=== PATIENT | female | born 1935 | race Caucasian/White ===

== ENCOUNTER 2019-03-27 20:11 | Inpatient (IN) | payer MEDICARE, OTHER ==
[2019-03-27 21:23] LABS: Basophils # (A) 0.1 k/uL (0-0.2); Basophils % (A) 1 %; Eosinophils # (A) 0.1 k/uL (0-0.7); Eosinophils % (A) 2 %; HCT 37.1 % (34.0-46.0); HGB 12.5 gm/dL (11.4-16.0); Lymphocytes # (A) 1.3 k/uL (1.0-4.8); Lymphocytes % (A) 23 %; MCH 30.2 pg (25.0-35.0); MCHC 33.7 g/dL (31.0-37.0); MCV 89.5 fL (80.0-100.0); Mean Platelet Volume 8.5; Monocytes # (A) 0.5 k/uL (0-1.0); Monocytes % (A) 9 %; Neutrophils # (A) 3.8 k/uL (1.3-7.7); Neutrophils % (A) 63 %; Platelet Count 302 k/uL (150-450); RBC 4.14 m/uL (3.80-5.40); RDW 14.4 % (11.5-15.5); WBC 5.9 k/uL (3.8-10.6)
[2019-03-27 21:30] LABS: ALT 28 U/L (9-52); AST 29 U/L (14-36); African American GFR (CKD) >90 (>60 ml/min/1.73 sqM); Albumin 4.3 g/dL (3.5-5.0); Alkaline Phosphatase 117 U/L (38-126); Anion Gap 10 mmol/L; Blood Urea Nitrogen 15 mg/dL (7-17); Calcium 9.8 mg/dL (8.4-10.2); Carbon Dioxide 24 mmol/L (22-30); Chloride 106 mmol/L (98-107); Creatine Kinase 62 U/L (30-135); Glucose 102 mg/dL (74-99); Magnesium 2.2 mg/dL (1.6-2.3); Potassium 4.2 mmol/L (3.5-5.1); Sodium 140 mmol/L (137-145); Total Bilirubin 0.8 mg/dL (0.2-1.3); Total Protein 7.3 g/dL (6.3-8.2)
[2019-03-27 21:34] LABS: Partial Thromboplastin Time 25.6 sec (22.0-30.0); Prothrombin Time 10.5 sec (9.0-12.0)
--- NOTE | 2019-03-27 21:50 | XR ---
EXAMINATION TYPE: XR chest 2V DATE OF EXAM: 03/27/2019 COMPARISON: Chest radiograph 01/09/2010 HISTORY: Dysrhythmia TECHNIQUE: Frontal and lateral views of the chest are obtained. FINDINGS: Cardiomediastinal silhouette is within normal limits. Atherosclerotic aortic calcification s. No focal airspace consolidation. No pleural effusion or pneumothorax. Remote right-sided rib fract ures noted. Exaggerated thoracic kyphosis with likely chronic physiologic wedging of multiple thoraci c vertebral bodies. Diffuse osteopenia. IMPRESSION: No acute cardiopulmonary process.
--- NOTE | 2019-03-27 22:37 | ED ---
Arrhythmia/Palpitations HPI - General Chief Complaint: Arrhythmia/Palpitations Stated Complaint: Tachycardia/AFIB Time Seen by Provider: 03/27/19 20:11 Source: patient, EMS, RN notes reviewed Mode of arrival: EMS - History of Present Illness Initial Comments: This 83-year-old female who was transferred here from [facility] where she presented with complaints of increased heart rate elevated blood pressure and later she developed chest pain while she was in the emergency department. Initial troponin was negative she had a heart rate is showed sinus rhythm of 124. She was transferred here for further evaluation. She has seen Dr. Chicas in the past. Currently symptom-free she has a chest pain palpitations fevers chills nausea vomiting sweats or other symptoms. He also have a CAT scan done as she had elevated d-dimer is negative. MD Complaint: rapid heart beat - Related Data Home Medications Medication Instructions Recorded Confirmed Allopurinol [Zyloprim] 300 mg PO DAILY 03/27/19 03/27/19 Atorvastatin Calcium [Lipitor] 20 mg PO HS 03/27/19 03/27/19 Ergocalciferol (Vitamin D2) 50,000 unit PO MOFR 03/27/19 03/27/19 [Vitamin D2] Fluticasone Nasal [place] [Flonase 1 spray EA NOSTRIL DAILY 03/27/19 03/27/19 Nasal [place]] Isosorbide Mononitrate ER [Imdur] 30 mg PO DAILY 03/27/19 03/27/19 Omeprazole [PriLOSEC] 20 mg PO DAILY 03/27/19 03/27/19 amLODIPine [Norvasc] 10 mg PO DAILY 03/27/19 03/27/19 Allergies Allergy/AdvReac Type Severity Reaction Status Date / Time No Known Allergies Allergy Verified 03/27/19 21:10 Review of Systems ROS Statement: Those systems with pertinent positive or pertinent negative responses have been documented in the HPI. ROS Other: All systems not noted in ROS Statement are negative. Past Medical History Past Medical History: Atrial Fibrillation History of Any Multi-Drug Resistant Organisms: None Reported Past Surgical History: Cholecystectomy, Heart Catheterization With Stent Past Psychological History: No Psychological Hx Reported Smoking Status: Never smoker Past Alcohol Use History: Occasional Past Drug Use History: None Reported General Exam - General Exam Comments Initial Comments: This is a well-developed well-nourished awake alert oriented x 3 female General appearance: alert, in no apparent distress Head exam: Present: atraumatic, normocephalic, normal inspection Eye exam: Present: normal appearance, PERRL, EOMI. Absent: scleral icterus, conjunctival injection, periorbital swelling ENT exam: Present: normal exam, mucous membranes moist Neck exam: Present: normal inspection. Absent: tenderness, meningismus, lymphadenopathy Respiratory exam: Present: normal lung sounds bilaterally. Absent: respiratory distress, wheezes, rales, rhonchi, stridor Cardiovascular Exam: Present: regular rate, normal rhythm, normal heart sounds. Absent: systolic murmur, diastolic murmur, rubs, gallop, clicks GI/Abdominal exam: Present: soft, normal bowel sounds. Absent: distended, tenderness, guarding, rebound, rigid Extremities exam: Present: normal inspection, full ROM, normal capillary refill. Absent: tenderness, pedal edema, joint swelling, calf tenderness Back exam: Present: normal inspection Neurological exam: Present: alert, oriented X3, CN II-XII intact Psychiatric exam: Present: normal affect, normal mood Skin exam: Present: warm, dry, intact, normal color. Absent: rash Course Vital Signs 03/27/19 03/27/19 03/27/19 20:20 20:29 21:55 Temperature 98 F Pulse Rate 72 61 Pulse Rate [ 78 Manager Law ] Respiratory 18 18 Rate Blood Pressure 161/71 134/76 O2 Sat by Pulse 96 96 Oximetry EKG Findings - EKG Results: EKG: interpreted by ERMD (Irregular rhythm passively atrial fibrillation rate of 87 QRS 90 QT since QTC 374/450) Medical Decision Making - Medical Decision Making Did review the materials from the sending facility patient be admitted I did discuss the case with Dr. Chicas who requested the patient be admitted to Dr. Wilks. I did discuss case Dr. Wilks's service. - Lab Data Result diagrams: 03/27/19 21:03 03/27/19 21:03 Lab Results 03/27/19 03/27/19 03/27/19 Range/Units 21:03 21:03 21:03 WBC 5.9 (3.8-10.6) k/uL RBC 4.14 (3.80-5.40) m/uL Hgb 12.5 (11.4-16.0) gm/dL Hct 37.1 (34.0-46.0) % MCV 89.5 (80.0-100.0) fL MCH 30.2 (25.0-35.0) pg MCHC 33.7 (31.0-37.0) g/dL RDW 14.4 (11.5-15.5) % Plt Count 302 (150-450) k/uL Neutrophils % 63 % Lymphocytes % 23 % Monocytes % 9 % Eosinophils % 2 % Basophils % 1 % Neutrophils # 3.8 (1.3-7.7) k/uL Lymphocytes # 1.3 (1.0-4.8) k/uL Monocytes # 0.5 (0-1.0) k/uL Eosinophils # 0.1 (0-0.7) k/uL Basophils # 0.1 (0-0.2) k/uL PT 10.5 (9.0-12.0) sec INR 1.0 (<1.2) APTT 25.6 (22.0-30.0) sec Sodium 140 (137-145) mmol/L Potassium 4.2 (3.5-5.1) mmol/L Chloride 106 (98-107) mmol/L Carbon Dioxide 24 (22-30) mmol/L Anion Gap 10 mmol/L BUN 15 (7-17) mg/dL Creatinine 0.68 (0.52-1.04) mg/dL Est GFR (CKD-EPI)AfAm >90 (>60 ml/min/1.73 sqM) Est GFR (CKD-EPI)NonAf 81 (>60 ml/min/1.73 sqM) Glucose 102 H (74-99) mg/dL Calcium 9.8 (8.4-10.2) mg/dL Magnesium 2.2 (1.6-2.3) mg/dL Total Bilirubin 0.8 (0.2-1.3) mg/dL AST 29 (14-36) U/L ALT 28 (9-52) U/L Alkaline Phosphatase 117 (38-126) U/L Creatine Kinase 62 (30-135) U/L Troponin I (0.000-0.034) ng/mL Total Protein 7.3 (6.3-8.2) g/dL Albumin 4.3 (3.5-5.0) g/dL 08/31/19 Range/Units 21:03 WBC (3.8-10.6) k/uL RBC (3.80-5.40) m/uL Hgb (11.4-16.0) gm/dL Hct (34.0-46.0) % MCV (80.0-100.0) fL MCH (25.0-35.0) pg MCHC (31.0-37.0) g/dL RDW (11.5-15.5) % Plt Count (150-450) k/uL Neutrophils % % Lymphocytes % % Monocytes % % Eosinophils % % Basophils % % Neutrophils # (1.3-7.7) k/uL Lymphocytes # (1.0-4.8) k/uL Monocytes # (0-1.0) k/uL Eosinophils # (0-0.7) k/uL Basophils # (0-0.2) k/uL PT (9.0-12.0) sec INR (<1.2) APTT (22.0-30.0) sec Sodium (137-145) mmol/L Potassium (3.5-5.1) mmol/L Chloride (98-107) mmol/L Carbon Dioxide (22-30) mmol/L Anion Gap mmol/L BUN (7-17) mg/dL Creatinine (0.52-1.04) mg/dL Est GFR (CKD-EPI)AfAm (>60 ml/min/1.73 sqM) Est GFR (CKD-EPI)NonAf (>60 ml/min/1.73 sqM) Glucose (74-99) mg/dL Calcium (8.4-10.2) mg/dL Magnesium (1.6-2.3) mg/dL Total Bilirubin (0.2-1.3) mg/dL AST (14-36) U/L ALT (9-52) U/L Alkaline Phosphatase (38-126) U/L Creatine Kinase (30-135) U/L Troponin I <0.012 (0.000-0.034) ng/mL Total Protein (6.3-8.2) g/dL Albumin (3.5-5.0) g/dL Disposition Clinical Impression: Chest pain, Atrial fibrillation Disposition: ADMITTED IP TO THIS HOSP Condition: Fair Referrals: Manasa Calixto NPC [Primary Care Provider] - 1-2 days
[2019-03-27] MEDS ORDERED: NALOXONE 0.4 MG/ML 1 ML VIAL IV PRN (22:43)
[2019-03-27] MEDS ORDERED: HEPARIN SODIUM,PORCINE 5,000 UNIT/ML 1 ML VIAL IV ONE (22:47)
[2019-03-27] MEDS ORDERED: HEPARIN SODIUM,PORCINE 5,000 UNIT/ML 1 ML VIAL IV PRN (22:47)
[2019-03-27] MEDS ORDERED: HEPARIN SOD,PORK IN 0.45% NACL 25,000 UNIT in 0.45% NACL 1 250ML.BAG IV SCH (23:00)
[2019-03-27] MEDS: SODIUM CHLORIDE 0.9% 1,000 ML IV SCH (23:11)
[2019-03-28 00:08] LABS: Basophils # (A) 0.1 k/uL (0-0.2); Basophils % (A) 1 %; Eosinophils # (A) 0.1 k/uL (0-0.7); Eosinophils % (A) 2 %; HCT 36.9 % (34.0-46.0); HGB 12.4 gm/dL (11.4-16.0); Lymphocytes # (A) 1.4 k/uL (1.0-4.8); Lymphocytes % (A) 22 %; MCHC 33.7 g/dL (31.0-37.0); MCV 91.8 fL (80.0-100.0); Mean Platelet Volume 8.8; Monocytes # (A) 0.5 k/uL (0-1.0); Monocytes % (A) 8 %; Neutrophils % (A) 65 %; Platelet Count 289 k/uL (150-450); RBC 4.02 m/uL (3.80-5.40); RDW 15.2 % (11.5-15.5); WBC 6.2 k/uL (3.8-10.6)
[2019-03-28 00:18] LABS: INR 1.1 (<1.2); Partial Thromboplastin Time 68.7 sec (22.0-30.0); Prothrombin Time 11.2 sec (9.0-12.0)
[2019-03-28 06:33] LABS: Basophils # (A) 0.1 k/uL (0-0.2); Basophils % (A) 1 %; Eosinophils # (A) 0.2 k/uL (0-0.7); Eosinophils % (A) 3 %; HCT 38.4 % (34.0-46.0); HGB 12.9 gm/dL (11.4-16.0); Lymphocytes # (A) 1.5 k/uL (1.0-4.8); Lymphocytes % (A) 26 %; MCH 30.5 pg (25.0-35.0); MCHC 33.5 g/dL (31.0-37.0); MCV 91.1 fL (80.0-100.0); Mean Platelet Volume 9.3; Monocytes # (A) 0.5 k/uL (0-1.0); Monocytes % (A) 10 %; Neutrophils # (A) 3.3 k/uL (1.3-7.7); Neutrophils % (A) 58 %; Platelet Count 278 k/uL (150-450); RBC 4.22 m/uL (3.80-5.40); RDW 14.9 % (11.5-15.5); WBC 5.7 k/uL (3.8-10.6)
[2019-03-28] MEDS: PANTOPRAZOLE 40 MG TABLET PO SCH (06:47)
[2019-03-28] MEDS: ISOSORBIDE MONONITRATE ER 30 MG TAB.ER.24H PO SCH (10:23)
[2019-03-28] MEDS: FLUTICASONE 50MCG/SPRAY NASAL 16GM EA NOSTRIL SCH (10:23)
[2019-03-28] MEDS: RIVAROXABAN 20 MG TAB PO SCH (10:23)
[2019-03-28] MEDS: ALLOPURINOL 300 MG TAB PO SCH (10:23)
[2019-03-28] MEDS: amLODIPine 10 MG TAB PO SCH (10:23)
[2019-03-28] MEDS: PROPAFENONE 150 MG TAB PO SCH ×3 (10:24→21:33)
--- NOTE | 2019-03-28 11:47 | CONS ---
CONSULTATION CHIEF COMPLAINT: Palpitations. This is an 83-year-old lady with history of coronary artery disease status post angioplasty, hypertension, dyslipidemia, who presented to hospital with elevated heart rates. She states that she has noticed heart rates as high as 140-160 and along with that she had some chest discomfort. She describes it as a tightness, vague, mild intensity, not associated with diaphoresis and unrelated to exertion. This has resolved on its own spontaneously. She was concerned, went to the emergency room in [place]. Subsequently had been transferred to our emergency room. She was found to be in new onset atrial fibrillation for which she is admitted and Cardiology had been consulted. At the time of my evaluation she is pain free, hemodynamically stable and in no apparent distress. EKG shows atrial fibrillation with controlled ventricular rate. Her blood pressures are poorly controlled. Troponin is negative. I talked to patient about her treatment options, including rate control with long-term anticoagulation versus rhythm suppression. She is going to think over this and make a decision tomorrow. I will obtain a 2D echo on her to evaluate her LV function. PAST MEDICAL HISTORY: Significant for coronary artery disease status post angioplasty, hypertension, dyslipidemia. MEDICATIONS: Medications at home include Lipitor 20 daily, Flonase, Imdur 30 daily, Prilosec 20 daily, Norvasc 10 daily. ALLERGIES: There are no known drug allergies. FAMILY HISTORY: Negative for premature coronary artery disease. SOCIAL HISTORY: Negative for smoking, EtOH abuse, or drug abuse. REVIEW OF SYSTEMS: HEENT is unremarkable. CARDIAC: Cardiac as described above. RESPIRATORY: As described above. GI: Negative. GENITOURINARY: Negative. ALLERGY: None. SKIN: Negative. MUSCULOSKELETAL: Negative. ENDOCRINE: Negative. DERM: Negative. CONSTITUTIONAL: Negative. ONCOLOGICAL: Negative. Rest of the system review is not relevant. EXAM: Heart rate is 60 beats per minute. Blood pressure is 160/70, respirations 18. Chest exam reveals good air entry bilaterally. Heart exam reveals first and second heart sounds, irregular rhythm. No murmur. Abdomen is soft. Exam of extremities did not reveal any edema. Peripheral pulses are felt. LAB: Show that the hemoglobin is 12.9, potassium is 4.2, creatinine is 0.68. Troponin is negative. ASSESSMENT: 1. Persistent atrial fibrillation. 2. Precordial chest pain, myocardial infarction ruled out. 3. Coronary artery disease, status post angioplasty. 4. Uncontrolled hypertension. PLAN: I will obtain a 2D echo. Start the patient on Xarelto 20 mg daily. Tomorrow morning, make a decision whether to let her go home or keep her here and do cardioversion. NILS / AMANDA: [id number] /
[2019-03-28] MEDS: LOSARTAN 25 MG TAB PO SCH (12:51)
--- NOTE | 2019-03-28 13:42 | ECHOF ---
Referral Reason:afib MEASUREMENTS -------- HEIGHT: 167.6 cm WEIGHT: 83.5 kg BP: 155/71 IVSd: 1.5 cm (0.6 - 1.1) LVIDd: 4.0 cm (3.9 - 5.3) LVPWd: 1.6 cm (0.6 - 1.1) IVSs: 1.6 cm LVIDs: 3.0 cm LVPWs: 1.9 cm LAESV Index (A-L): 48.27 ml/m Ao Diam: 2.6 cm (2.0 - 3.7) AV Cusp: 1.5 cm (1.5 - 2.6) LA Diam: 4.2 cm (2.7 - 3.8) MV EXCURSION: 12.148 mm (> 18.000) MV EF SLOPE: 71 mm/s (70 - 150) EPSS: 0.2 cm AR PHT: 474 ms RAP: 5.00 mmHg RVSP: 47.24 mmHg FINDINGS -------- Atrial fibrillation. This was a technically adequate study. The left ventricular size is normal. There is moderate concentric left ventricular hypertrophy. O verall left ventricular systolic function is low-normal with, an EF between 50 - 55 %. Left ventric ular fillimg pressure cannot be estimated due to Atrial fibrillation. The right ventricle is moderately enlarged. LA is severely dilated >40 ml/m2 RA appears enlarged. Interatrial and interventricular septum intact. The aortic valve is trileaflet and appears structurally normal. There is moderate aortic regurgitat ion. There is no evidence of aortic stenosis. Moderate mitral regurgitation is present. Moderate tricuspid regurgitation present. There is moderate pulmonary hypertension. The right jude tricular systolic pressure, as measured by Doppler, is 47.24mmHg. There is no pulmonic regurgitation present. The aortic root size is normal. The inferior vena cava is mildly dilated. There is a trivial pericardial effusion present. CONCLUSIONS -------- 1. Atrial fibrillation. 2. This was a technically adequate study. 3. The left ventricular size is normal. 4. There is moderate concentric left ventricular hypertrophy. 5. Overall left ventricular systolic function is low-normal with, an EF between 50 - 55 %. 6. Left ventricular fillimg pressure cannot be estimated due to Atrial fibrillation. 7. The right ventricle is moderately enlarged. 8. LA is severely dilated >40 ml/m2 9. RA appears enlarged. 10. Interatrial and interventricular septum intact. 11. The aortic valve is trileaflet and appears structurally normal. 12. There is moderate aortic regurgitation. 13. There is no evidence of aortic stenosis. 14. Moderate mitral regurgitation is present. 15. Moderate tricuspid regurgitation present. 16. There is moderate pulmonary hypertension. 17. The right ventricular systolic pressure, as measured by Doppler, is 47.24mmHg. 18. There is no pulmonic regurgitation present. 19. The aortic root size is normal. 20. The inferior vena cava is mildly dilated. 21. There is a trivial pericardial effusion present. HUMAN GEOGRAPHY FACULTY MEMBER: Lily Rowley RDCS
--- NOTE | 2019-03-28 15:05 | P.HPIM ---
History of Present Illness This is a pleasant 83 years old female with past medical history of atrial fibrillation, hyperlipidemia, hypertension, coronary artery disease status post cardiac cath and stent placement. Presents with palpitations and chest tigh tness. Patient has heart rate in the range of 140-160. She was transferred from [facility] to [facility] for further management and cardiology evaluation. At the time of rapid heart rate she felt some chest tightness that relieved with nitroglycerin. Currently as result with no more chest pain or dyspnea Patient vitals stable and heart rate currently is 63-74. Labs show an unrema rkable CBC and BMP. Echocardiogram showed ejection fraction 50-55% with moderate LVH. Moderate aortic regurgitation. Moderate tricuspid regurgitation. Moderate pulmonary hypertension. Battery Technician evaluated the patient and recommended rate control with anticoagulation versus rhythm suppression, patient will make decision tomorrow. Review of Systems CONSTITUTIONAL: No fever, no malaise, no fatigue. HEENT: No recent visual problems or hearing problems. Denied any sore throat. CARDIOVASCULAR: No orthopnea, PND, no palpitations, no syncope. PULMONARY: No shortness of breath, no cough, no hemoptysis. GASTROINTESTINAL: No diarrhea, no nausea, no vomiting, no abdominal pain. Normoactive bowel sounds. NEUROLOGICAL: No headaches, no weakness, no numbness. HEMATOLOGICAL: Denies any bleeding or petechiae. GENITOURINARY: Denies any burning micturition, frequency, or urgency. MUSCULOSKELETAL/RHEUMATOLOGICAL: Denies any joint pain, swelling, or any muscle pain. ENDOCRINE: Denies any polyuria or polydipsia. Past Medical History Past Medical History: Atrial Fibrillation, Hyperlipidemia, Hypertension History of Any Multi-Drug Resistant Organisms: None Reported Past Surgical History: Appendectomy, Cholecystectomy, Heart Catheterization With Stent, Hysterectomy Date of Last Stent Placement:: 5 years ago Past Psychological History: No Psychological Hx Reported Smoking Status: Never smoker Past Alcohol Use History: Occasional Past Drug Use History: None Reported Medications and Allergies Home Medications Medication Instructions Recorded Confirmed Type Allopurinol [Zyloprim] 300 mg PO DAILY 03/27/19 03/27/19 History Atorvastatin Calcium [Lipitor] 20 mg PO HS 03/27/19 03/27/19 History Ergocalciferol (Vitamin D2) 50,000 unit PO MOFR 03/27/19 03/27/19 History [Vitamin D2] Fluticasone Nasal [place] [Flonase 1 spray EA NOSTRIL DAILY 03/27/19 03/27/19 History Nasal [place]] Isosorbide Mononitrate ER [Imdur] 30 mg PO DAILY 03/27/19 03/27/19 History Omeprazole [PriLOSEC] 20 mg PO DAILY 03/27/19 03/27/19 History amLODIPine [Norvasc] 10 mg PO DAILY 03/27/19 03/27/19 History Allergies Allergy/AdvReac Type Severity Reaction Status Date / Time No Known Allergies Allergy Verified 03/27/19 21:10 Physical Exam Vitals: Vital Signs Temp Pulse Pulse Pulse Resp BP BP 03/28/19 11:50 74 16 134/87 03/28/19 08:35 97.9 F 63 16 155/71 03/28/19 04:00 97.7 F 62 16 168/73 03/28/19 01:00 97.8 F 60 16 139/77 03/28/19 00:45 162/68 03/27/19 21:55 61 18 134/76 03/27/19 20:29 78 03/27/19 20:20 98 F 72 18 161/71 Pulse Ox 03/28/19 11:50 98 03/28/19 08:35 96 03/28/19 04:00 96 03/28/19 01:00 98 03/28/19 00:45 03/27/19 21:55 96 03/27/19 20:29 03/27/19 20:20 96 Intake and Output 03/27/19 03/28/19 03/28/19 22:59 06:59 14:59 Other: Voiding Method Toilet # Voids 1 Weight 81.647 kg 83.7 kg GENERAL: The patient is alert and oriented x3, not in any acute distress. Well developed, well nourished. HEENT: Pupils are round and equally reacting to light. EOMI. No scleral icterus. No conjunctival pallor. Normocephalic, atraumatic. No pharyngeal erythema. No thyromegaly. CARDIOVASCULAR: S1 and S2 present. No murmurs, rubs, or gallops. PULMONARY: Chest is clear to auscultation, no wheezing or crackles. ABDOMEN: Soft, nontender, nondistended, normoactive bowel sounds. No palpable organomegaly. MUSCULOSKELETAL: No joint swelling or deformity. EXTREMITIES: No cyanosis, clubbing, or pedal edema. NEUROLOGICAL: Gross neurological examination did not reveal any focal deficits. SKIN: No rashes. Results CBC & Chem 7: 03/28/19 05:56 03/27/19 21:03 Labs: Abnormal Lab Results - Last 24 Hours (Table) 03/27/19 03/27/19 03/28/19 Range/Units 21:03 23:29 05:56 APTT 68.7 H 57.8 H (22.0-30.0) sec Glucose 102 H (74-99) mg/dL Thrombosis Risk Factor Assmnt - Choose All That Apply Each Factor Represents 1 point: Medical pt on bed rest, Obesity (BMI >25) Each Risk Factor Represents 3 Points: Age 75 years or older Thrombosis Risk Factor Assessment Total Risk Factor Score: 5 Thrombosis Risk Factor Assessment Level: High Risk Assessment and Plan Assessment: Persistent atrial fibrillation Moderate aortic regurgitation and tricuspid regurgitation Moderate pulmonary hypertension Hypertension Hyperlipidemia History of coronary artery disease status post stent Plan: This is a pleasant 83 years old female who presents with palpitations and A. fib with RVR. Cardiogenic evaluated the patient and recommended rate control versus rhythm suppression. Echocardiogram. Continue on Xarelto Labs and medication were reviewed.. Continue same treatment. Continue with symptomatic treatment. Resume home medication. Monitor lytes and vitals. DVT and GI prophylaxis. Further recommendations of the clinical course of the patient DVT prophylaxis: Xarelto GI Prophylaxis: Protonix Prognosis is guarded
[2019-03-28] MEDS: SODIUM CHLORIDE 0.9% 1,000 ML IV SCH (18:13)
[2019-03-28] MEDS: ATORVASTATIN 20 MG TAB PO SCH (21:33)
[2019-03-29] MEDS: SODIUM CHLORIDE 0.9% 1,000 ML IV SCH ×3 (04:36→15:28)
[2019-03-29] MEDS: PANTOPRAZOLE 40 MG TABLET PO SCH (06:40)
[2019-03-29] MEDS ORDERED: ERGOCALCIFEROL 50,000 UNIT CAP PO SCH (09:00)
[2019-03-29] MEDS: LOSARTAN 25 MG TAB PO SCH (10:01)
[2019-03-29] MEDS: amLODIPine 10 MG TAB PO SCH (10:01)
[2019-03-29] MEDS: ISOSORBIDE MONONITRATE ER 30 MG TAB.ER.24H PO SCH (10:01)
[2019-03-29] MEDS: RIVAROXABAN 20 MG TAB PO SCH (10:02)
[2019-03-29] MEDS: PROPAFENONE 150 MG TAB PO SCH ×3 (10:02→21:20)
[2019-03-29] MEDS: ALLOPURINOL 300 MG TAB PO SCH (10:02)
[2019-03-29] MEDS: FLUTICASONE 50MCG/SPRAY NASAL 16GM EA NOSTRIL SCH (10:03)
--- NOTE | 2019-03-29 11:17 | P.PN ---
Subjective This is a pleasant 83 years old female with past medical history of atrial fibrillation, hyperlipidemia, hypertension, coronary artery disease status post cardiac cath and stent placement. Presents with palpitations and chest tightness. Patient has heart rate in the range of 140-160. She was transferred from [facility] to [facility] for further management and cardiology evaluation. At the time of rapid heart rate she felt some chest tightness that relieved with nitroglycerin. Currently as result with no more chest pain or dy spnea Patient vitals stable and heart rate currently is 63-74. Labs show an unremarkable CBC and BMP. Echocardiogram showed ejection fraction 50-55% with moderate LVH. Moderate aortic regurgitation. Moderate tricuspid regurgitation. Moderate pulmonary hypertension. Labor Relations Director evaluated the patient and recommended rate control with anticoagulation versus rhythm suppression, patient will make decision tomorrow. 03/29/2019 Patient has no more palpitation. No chest pain or dyspnea. She is fully awake with no new symptoms. She is hemodynamically stable and heart rate is in high 90s. Occult blood in his stool is negative. Cardiology team are following the patient closely Objective - Vital Signs Vital signs: Vital Signs Temp 98 F 03/29/19 11:08 Pulse 98 03/29/19 11:08 Resp 16 03/29/19 11:08 BP 134/77 03/29/19 11:08 Pulse Ox 97 03/29/19 11:08 Intake & Output 03/28/19 03/29/19 03/29/19 18:59 06:59 18:59 Intake Total 240 840 Output Total 300 200 Balance -60 -200 840 Weight 81.3 kg Intake: Oral 240 840 Output: Urine 300 200 Other: Voiding Method Toilet Toilet Toilet # Voids 2 - Exam GENERAL: The patient is alert and oriented x3, not in any acute distress. Well developed, well nourished. HEENT: Pupils are round and equally reacting to light. EOMI. No scleral icterus. No conjunctival pallor. Normocephalic, atraumatic. No pharyngeal erythema. No thyromegaly. CARDIOVASCULAR: S1 and S2 present. No murmurs, rubs, or gallops. PULMONARY: Chest is clear to auscultation, no wheezing or crackles. ABDOMEN: Soft, nontender, nondistended, normoactive bowel sounds. No palpable organomegaly. MUSCULOSKELETAL: No joint swelling or deformity. EXTREMITIES: No cyanosis, clubbing, or pedal edema. NEUROLOGICAL: Gross neurological examination did not reveal any focal deficits. SKIN: No rashes. Get up and go test is within normal - Labs CBC & Chem 7: 03/28/19 05:56 03/27/19 21:03 Assessment and Plan Assessment: Persistent atrial fibrillation Moderate aortic regurgitation and tricuspid regurgitation Moderate pulmonary hypertension Hypertension Hyperlipidemia History of coronary artery disease status post stent Plan: This is a pleasant 83 years old female who presents with palpitations and A. fib with RVR. Cardiogenic evaluated the patient and recommended rate control versus rhythm suppression. Echocardiogram. Continue on Xarelto Labs and medication were reviewed.. Continue same treatment. Continue with symptomatic treatment. Resume home medication. Monitor lytes and vitals. DVT and GI prophylaxis. Further recommendations of the clinical course of the patient DVT prophylaxis: Xarelto GI Prophylaxis: Protonix Prognosis is guarded
--- NOTE | 2019-03-29 18:11 | PN ---
PROGRESS NOTE Britany is an 83-year-old lady who was admitted to hospital with new onset atrial fibrillation. She remains in atrial fibrillation. Heart rate is better controlled. I started her on Rythmol 150 q.8 but she still remains in atrial fibrillation. She is adequately anticoagulated with Xarelto. I talked to her about undergoing transesophageal echo with cardioversion. She is agreeable now and will set it up tomorrow. An echocardiogram on this admission revealed normal LV function with moderate mitral regurgitation. EXAM: Comfortable at rest. Heart rate is 98 beats per minute. Blood pressure 134/77, respiratory rate is 18. Chest exam reveals good air entry bilaterally. Heart exam reveals first and second heart sounds, irregular rhythm. Abdomen is soft. Exam of extremities did not reveal any edema. Peripheral pulses are felt. LABS: Labs show that the hemoglobin is 12.9, potassium is 4.2, creatinine is 0.6. ASSESSMENT: Persistent atrial fibrillation with controlled ventricular rate. PLAN: Patient will undergo OSCAR cardioversion tomorrow. MMODL / IJN: [id number] /
[2019-03-29] MEDS: METOPROLOL TARTRATE 25 MG TAB PO SCH (19:16)
[2019-03-29] MEDS: ATORVASTATIN 20 MG TAB PO SCH (21:20)
[2019-03-30] MEDS: SODIUM CHLORIDE 0.9% 1,000 ML IV SCH ×2 (02:09→19:40)
[2019-03-30 06:15] LABS: Basophils # (A) 0.1 k/uL (0-0.2); Basophils % (A) 2 %; Eosinophils # (A) 0.2 k/uL (0-0.7); Eosinophils % (A) 3 %; HGB 12.4 gm/dL (11.4-16.0); Lymphocytes # (A) 1.3 k/uL (1.0-4.8); Lymphocytes % (A) 24 %; MCHC 32.6 g/dL (31.0-37.0); MCV 91.9 fL (80.0-100.0); Mean Platelet Volume 8.5; Monocytes # (A) 0.5 k/uL (0-1.0); Monocytes % (A) 9 %; Neutrophils # (A) 3.4 k/uL (1.3-7.7); Neutrophils % (A) 61 %; Platelet Count 285 k/uL (150-450); RBC 4.13 m/uL (3.80-5.40); RDW 14.8 % (11.5-15.5); WBC 5.7 k/uL (3.8-10.6)
[2019-03-30 06:29] LABS: Calcium 9.6 mg/dL (8.4-10.2); Potassium 4.7 mmol/L (3.5-5.1)
[2019-03-30] MEDS: PANTOPRAZOLE 40 MG TABLET PO SCH (06:35)
[2019-03-30] MEDS ORDERED: PROPOFOL 10 MG/ML 20 ML VIAL IV ONE (08:34)
[2019-03-30] MEDS ORDERED: LIDOCAINE 1% INJ 10MG/ML (20 ML MDV) ONE (08:34)
[2019-03-30] MEDS ORDERED: SODIUM CHLORIDE 0.9% 1,000 ML IV ONE (08:51)
[2019-03-30] MEDS: BENZOCAINE SPRAY 1 CAN MUCOUS MEM ONE ×2 (09:07→09:08)
[2019-03-30] MEDS: FLUTICASONE 50MCG/SPRAY NASAL 16GM EA NOSTRIL SCH (10:16)
[2019-03-30] MEDS: METOPROLOL TARTRATE 25 MG TAB PO SCH (10:25)
[2019-03-30] MEDS: ISOSORBIDE MONONITRATE ER 30 MG TAB.ER.24H PO SCH (10:25)
[2019-03-30] MEDS: ALLOPURINOL 300 MG TAB PO SCH (10:25)
[2019-03-30] MEDS: RIVAROXABAN 20 MG TAB PO SCH (10:25)
--- NOTE | 2019-03-30 10:27 | ECHOT ---
TRANSESOPHAGEAL ECHOCARDIOGRAM INDICATION: Persistent atrial fibrillation. PROCEDURE NOTE: After obtaining informed consent, transesophageal echocardiogram was performed in left lateral position using an Omni plane probe. Local and IV sedation were obtained by the communications intern. Patient tolerated the procedure well without any obvious immediate complications. FINDINGS: 1. There is abundance of spontaneous echo contrast noted with linear echodense structure within the left atrial appendage consistent with left atrial appendage thrombus. 2. Left atrium appears enlarged. 3. Right atrium and right ventricle seen within normal limits. 4. Interatrial septum - There is no evidence of [id number] shunt by color-flow Doppler or [id number] shunt by agitated saline contrast study. 5. Mitral valve shows mild mitral regurgitation. 6. Aortic valve shows mild aortic regurgitation. 7. Tricuspid valve shows mild tricuspid regurgitation. 8. Left ventricle has normal size and systolic function. CONCLUSIONS: 1. Normal left ventricular systolic function. 2. Left atrial appendage thrombus. PLAN: Will cancel the cardioversion. Stop the Rythmol. Send the patient home on Xarelto and look at the left atrial appendage again in 6-8 weeks' time. MMODL / IJN: [id number] /
[2019-03-30] MEDS: LOSARTAN 25 MG TAB PO SCH (12:40)
[2019-03-30] MEDS: ATORVASTATIN 20 MG TAB PO SCH (20:40)
[2019-03-30] MEDS ORDERED: amLODIPine 10 MG TAB PO SCH (21:00)
--- NOTE | 2019-03-30 21:53 | P.PN ---
Subjective This is a pleasant 83 years old female with past medical history of atrial fibrillation, hyperlipidemia, hypertension, coronary artery disease status post cardiac cath and stent placement. Presents with palpitations and chest tightness. Patient has heart rate in the range of 140-160. She was transferred from [facility] to [facility] for further management and cardiology evaluation. At the time of rapid heart rate she felt some chest tightness that relieved with nitroglycerin. Currently as result with no more chest pain or dy spnea Patient vitals stable and heart rate currently is 63-74. Labs show an unremarkable CBC and BMP. Echocardiogram showed ejection fraction 50-55% with moderate LVH. Moderate aortic regurgitation. Moderate tricuspid regurgitation. Moderate pulmonary hypertension. Autographer evaluated the patient and recommended rate control with anticoagulation versus rhythm suppression, patient will make decision tomorrow. 03/29/2019 Patient has no more palpitation. No chest pain or dyspnea. She is fully awake with no new symptoms. She is hemodynamically stable and heart rate is in high 90s. Occult blood in his stool is negative. Cardiology team are following the patient closely 03/30/2019 pt is with no chest pain , today pt is found to have a blood clot in the left heart appendage, no cardioversion for her a fib has been cancelled and recommended to repeat echo in about 6 weeks for follow up . discussed case with cardiology team . we are going to monitor pt for another 24 hours Objective - Vital Signs Vital signs: Vital Signs Temp 97.8 F 03/30/19 15:56 Pulse 53 L 03/30/19 16:00 Resp 16 03/30/19 16:15 BP 118/59 03/30/19 16:00 Pulse Ox 98 03/30/19 15:56 Intake & Output 03/29/19 03/30/19 03/30/19 18:59 06:59 18:59 Intake Total 1800 1820 Output Total 250 Balance 1800 -250 1820 Weight 82.1 kg Intake: Oral 1800 1820 Output: Urine 250 Other: Voiding Method Toilet Toilet Toilet # Voids 4 - Exam GENERAL: The patient is alert and oriented x3, not in any acute distress. Well developed, well nourished. HEENT: Pupils are round and equally reacting to light. EOMI. No scleral icterus. No conjunctival pallor. Normocephalic, atraumatic. No pharyngeal erythema. No thyromegaly. CARDIOVASCULAR: S1 and S2 present. No murmurs, rubs, or gallops. PULMONARY: Chest is clear to auscultation, no wheezing or crackles. ABDOMEN: Soft, nontender, nondistended, normoactive bowel sounds. No palpable organomegaly. MUSCULOSKELETAL: No joint swelling or deformity. EXTREMITIES: No cyanosis, clubbing, or pedal edema. NEUROLOGICAL: Gross neurological examination did not reveal any focal deficits. SKIN: No rashes. Get up and go test is within normal - Labs CBC & Chem 7: 03/30/19 05:42 03/30/19 05:42 Labs: Abnormal Lab Results - Last 24 Hours (Table) 03/30/19 Range/Units 05:42 BUN 25 H (7-17) mg/dL Glucose 100 H (74-99) mg/dL Assessment and Plan Assessment: Persistent atrial fibrillation Moderate aortic regurgitation and tricuspid regurgitation Moderate pulmonary hypertension Hypertension Hyperlipidemia History of coronary artery disease status post stent Plan: This is a pleasant 83 years old female who presents with palpitations and A. fib with RVR. Continue on Xarelto. no cardioversion for her a fib and recommended to repeat echo in 4-6 weeks for left heart thrombosis . discussed case with cardiology team . Labs and medication were reviewed.. Continue same treatment. Continue with symptomatic treatment. Resume home medication. Monitor lytes and vitals. DVT and GI prophylaxis. Further recommendations of the clinical course of the patient DVT prophylaxis: Xarelto GI Prophylaxis: Protonix Prognosis is guarded possible dc in 24-48 hrs
[2019-03-30] MEDS: PROPAFENONE 150 MG TAB PO SCH (22:49)
[2019-03-30] MEDS: amLODIPine 10 MG TAB PO SCH (22:49)
[2019-03-31] MEDS: SODIUM CHLORIDE 0.9% 1,000 ML IV SCH (01:50)
[2019-03-31] MEDS: PANTOPRAZOLE 40 MG TABLET PO SCH (06:44)
[2019-03-31 07:55] VITALS: RESP 15
[2019-03-31] MEDS: METOPROLOL TARTRATE 25 MG TAB PO SCH (09:29)
[2019-03-31] MEDS: RIVAROXABAN 20 MG TAB PO SCH (09:29)
[2019-03-31] MEDS: ALLOPURINOL 300 MG TAB PO SCH (09:29)
[2019-03-31] MEDS: ISOSORBIDE MONONITRATE ER 30 MG TAB.ER.24H PO SCH (09:29)
[2019-03-31] MEDS: FLUTICASONE 50MCG/SPRAY NASAL 16GM EA NOSTRIL SCH (09:32)
[2019-03-31 11:11] VITALS: PULSE 67; TEMP 98.4
[2019-03-31 13:13] VITALS: BP 125/58
[2019-03-31] MEDS: LOSARTAN 25 MG TAB PO SCH (13:13)
--- NOTE | 2019-03-31 14:47 | P.PN ---
Subjective Progress Note Date: 03/31/19 This is an 83-year-old female with history of coronary artery disease and prior angioplasty, hypertension, hyperlipidemia, who presented to the hospital with elevated heart rates of 140-160 range. She was seen in consultation by Dr. Vann, found to be in atrial fibrillation. Patient was recommended to undergo a OSCAR with subsequent cardioversion, the OSCAR was performed yesterday which raised suspicion of a thrombus and patient was started on anticoagulation. She was seen and examined today, continues to be in atrial fibrillation, her heart rate is under good control. She feels well. Blood pressure 125/50 with a heart rate in the 70s, 95% on room air. Objective - Vital Signs Vital signs: Vital Signs Temp 98.4 F 03/31/19 11:05 Pulse 67 03/31/19 11:05 Resp 15 03/31/19 11:05 BP 125/58 03/31/19 13:13 Pulse Ox 95 03/31/19 11:05 Intake & Output 03/30/19 03/31/19 03/31/19 18:59 06:59 18:59 Intake Total 5567 986 6047 Balance 8272 476 2826 Weight 81.3 kg Intake: Oral 4644 007 6417 Other: Voiding Method Toilet Toilet Toilet # Voids 2 - Exam PHYSICAL EXAMINATION: GENERAL: 83-year-old female in no acute distress at the time of my examination HEENT: Head is atraumatic, normocephalic. Pupils equal, round. Sclera anicteric. Conjunctiva are clear. Mucous membranes of the mouth are moist. Neck is supple. There is no elevated jugular venous pressure.] bruit is heard. HEART EXAMINATION: Heart S1 and S2 irregularly irregular CHEST EXAMINATION: Lungs are clear to auscultation and precussion. No chest wall tenderness is noted on palpation or with deep breathing. ABDOMEN: Soft, nontender. Bowel sounds are heard. No organomegaly noted. EXTREMITIES: 2+ peripheral pulses with no evidence of peripheral edema and no calf tenderness noted. NEUROLOGIC patient is awake, alert and oriented 3 . - Labs CBC & Chem 7: 03/30/19 05:42 03/30/19 05:42 Assessment and Plan Plan: Assessment and plan #1 persistent atrial fibrillation, status post a OSCAR which revealed normal left ventricular systolic function with a left atrial appendage thrombus. Patient has been initiated on anticoagulation. Plan Patient may be able to be discharged home today, on anticoagulation. In 6-8 weeks, subsequent OSCAR will be performed. We'll make her a follow-up appointment to see Dr. Vann in the office post discharge. DNP note has been reviewed, I agree with a documented findings and plan of care. Patient was seen and examined.
[2019-04-01] MEDS ORDERED: APIXABAN 5 MG TAB PO SCH (09:00)
--- NOTE | 2019-04-06 09:27 | P.DS ---
Providers Date of admission: 03/27/19 22:47 Attending physician: Antonio Wilks Consults: 03/27/19 22:45 Consult Physician Routine Consulting Provider: Wang Chicas Consult Reason/Comments: Chest pain, A. fib Do you want consulting provider notified?: Already Contacted Primary care physician: Manasa [facility] Hospital Course: Diagnoses: Persistent atrial fibrillation Thrombosis in the left atrial appendage [id number] Moderate aortic regurgitation and tricuspid regurgitation Moderate pulmonary hypertension Hypertension Hyperlipidemia History of coronary artery disease status post stent Hospital course: This is a pleasant 83 years old female with past medical history of atrial fibrillation, hyperlipidemia, hypertension, coronary artery disease status post cardiac cath and stent placement. Presents with palpitations and chest tightness. Patient has heart rate in the range of 140-160. She was transferred from [facility] to [facility] for further management and cardiology evaluation. Patient has been evaluated by electrical power engineer on her medication were adjusted. Current heart rate has been controlled and currently is running 60- 75. Patient has metoprolol 25 mg daily added, also she is on Norvasc and losartan. Patient also on 0-20 mg daily. Ago shows ejection fraction 50-55% and LVH. Patient was planned to has cardioversion procedure however the procedure was canceled because patient was found to have thrombosis and her left atrial appendage, with the plan to check for the left atrial appendage again in 6-8 weeks time. Patient informed about this recommendation and she agrees. Patient remains asymptomatic with no chest pain, no dyspnea, no change in urine or bowel habits, no abdominal pain, no nausea vomiting, no fever, patient was cleared by cardiology team for discharge. Patient agrees and she is eager to go home. Problems and management plan were discussed with the patient and he verbalized understanding and acceptance Patient was found stable and can be discharged home however he needs follow-up as an outpatient. Patient was instructed to follow up with her PCP in one week. Also patient agrees with cardiology appointment and timing and said she will follow-up. i discussed the case with the BARBARA/Trice on the case . pt will be discharged on eliquis for one month with free coupon is provided for her for one month. and she will follow up with her pcp and electrical power engineer to see if she will continue with eliquis or xarelto based on clinical indication and copay. pt already has follow up appointments that she is aware of and agreeable with Gen: patient is a AAOx3, no distress CVS: S1-S2, RRR, no murmur Lungs: B/L CTA, no wheezing Abdomen: soft, no distention, no tenderness, positive bowel sounds Extremity: no leg edema or induration Time spent more than 35 minutes Patient Condition at Discharge: Stable Plan - Discharge Summary Discharge Rx Participant: No New Discharge Prescriptions: New Losartan [Cozaar] 25 mg PO DAILY #30 tab Apixaban [Eliquis] 5 mg PO BID #60 tab Metoprolol Tartrate [Lopressor] 25 mg PO DAILY #30 tab Continue amLODIPine [Norvasc] 10 mg PO DAILY Omeprazole [PriLOSEC] 20 mg PO DAILY Isosorbide Mononitrate ER [Imdur] 30 mg PO DAILY Fluticasone Nasal Conger [Flonase Nasal Conger] 1 spray EA NOSTRIL DAILY Ergocalciferol (Vitamin D2) [Vitamin D2] 50,000 unit PO MOFR Atorvastatin Calcium [Lipitor] 20 mg PO HS Allopurinol [Zyloprim] 300 mg PO DAILY Discharge Medication List Allopurinol [Zyloprim] 300 mg PO DAILY 03/27/19 [History] Atorvastatin Calcium [Lipitor] 20 mg PO HS 03/27/19 [History] Ergocalciferol (Vitamin D2) [Vitamin D2] 50,000 unit PO MOFR 03/27/19 [History] Fluticasone Nasal Conger [Flonase Nasal Conger] 1 spray EA NOSTRIL DAILY 03/27/19 [History] Isosorbide Mononitrate ER [Imdur] 30 mg PO DAILY 03/27/19 [History] Omeprazole [PriLOSEC] 20 mg PO DAILY 03/27/19 [History] amLODIPine [Norvasc] 10 mg PO DAILY 03/27/19 [History] Apixaban [Eliquis] 5 mg PO BID #60 tab 03/31/19 [Rx] Losartan [Cozaar] 25 mg PO DAILY #30 tab 03/31/19 [Rx] Metoprolol Tartrate [Lopressor] 25 mg PO DAILY #30 tab 03/31/19 [Rx] Follow up Appointment(s)/Referral(s): Wang Chicas MD [STAFF PHYSICIAN] - 04/09/19 3:30 pm (In [place] office.) Manasa Calixto NPC [Primary Care Provider] - 04/01/19 9:30 am Patient Instructions/Handouts: A-fib (Atrial Fibrillation) (DC), Transesophageal Echocardiogram (DC), Blood Thinners (DC) Discharge Disposition: HOME SELF-CARE
== END 2019-03-31 15:51 | disposition home or self-care (01) | DRG 315 ==
LOC: EC 20:11 → 3SCARD 22:47 → OBSVTOIN 03-31 08:52
PROVIDERS: ADMIT Hospitalist; ATTEND Hospitalist
PROC: B246ZZ4 Ultrasonography of Right and Left Heart, Transesophageal (ICD-10-PCS; principal; 2019-03-30 08:45)
DX: I23.6 Thrombosis of atrium, auricular appendage, and ventricle as current complications following acute myocardial infarction (principal); I48.1 Persistent atrial fibrillation; I27.20 Pulmonary hypertension, unspecified; I08.3 Combined rheumatic disorders of mitral, aortic and tricuspid valves; I25.10 Atherosclerotic heart disease of native coronary artery without angina pectoris; I10 Essential (primary) hypertension; E78.5 Hyperlipidemia, unspecified; Z79.899 Other long term (current) drug therapy; Z90.49 Acquired absence of other specified parts of digestive tract; Z95.5 Presence of coronary angioplasty implant and graft; Z90.710 Acquired absence of both cervix and uterus
CPT/HCPCS: 36415; 71046; 80048; 80053; 82272; 82550; 83735; 84443; 84484; 85025; 85610; 85730; 93005; 93306; 93312; 93320; 93325; 96365; 96376; 99285

== ENCOUNTER 2022-08-01 14:02 | Inpatient (IN) | payer MEDICARE ==
[2022-08-01 15:41] LABS: Basophils % (A) 0 %; Eosinophils % (A) 0 %; HCT 32.2 % (34.0-46.0); HGB 11.4 gm/dL (11.4-16.0); Lymphocytes # (A) 0.6 k/uL (1.0-4.8); Lymphocytes % (A) 6 %; MCH 31.8 pg (25.0-35.0); MCHC 35.4 g/dL (31.0-37.0); MCV 89.8 fL (80.0-100.0); Mean Platelet Volume 10.2; Monocytes # (A) 0.3 k/uL (0-1.0); Monocytes % (A) 4 %; Neutrophils # (A) 7.8 k/uL (1.3-7.7); Neutrophils % (A) 88 %; Platelet Count 288 k/uL (150-450); RBC 3.59 m/uL (3.80-5.40); RDW 13.9 % (11.5-15.5); WBC 8.8 k/uL (3.8-10.6)
[2022-08-01 15:49] LABS: INR 1.2 (<1.2); Partial Thromboplastin Time 31.6 sec (22.0-30.0); Prothrombin Time 12.4 sec (9.0-12.0)
[2022-08-01 15:53] LABS: Albumin 3.7 g/dL (3.5-5.0); Calcium 8.9 mg/dL (8.4-10.2); Magnesium 1.9 mg/dL (1.6-2.3); Potassium 4.2 mmol/L (3.5-5.1); Total Bilirubin 0.8 mg/dL (0.2-1.3); Total Protein 6.9 g/dL (6.3-8.2)
[2022-08-01] MEDS ORDERED: LEVOFLOXACIN 750MG-D5W PMX 750 MG in DEXTROSE/WATER 1 150ML.BAG IVPB STA (17:26)
[2022-08-01] MEDS ORDERED: NALOXONE 0.4 MG/ML 1 ML VIAL IV PRN (17:27)
[2022-08-01] MEDS ORDERED: AZITHROMYCIN 500 MG in SODIUM CHLORIDE 0.9% 250 ML IVPB SCH (20:00)
[2022-08-01] MEDS: ATORVASTATIN 20 MG TAB PO SCH (20:20)
[2022-08-01] MEDS: RIVAROXABAN 20 MG TAB PO SCH (20:23)
--- NOTE | 2022-08-01 21:04 | ED ---
General Adult HPI - General Chief complaint: Upper Respiratory Infection Stated complaint: Pneumonia Time Seen by Provider: 08/01/22 14:06 Source: patient, RN notes reviewed, old records reviewed Mode of arrival: ambulatory Limitations: no limitations - History of Present Illness Initial comments: Patient is an 87-year-old female with history of atrial fibrillation, hypertension who presents emergency department after being transferred from [facility] over concern for worsening exertional dyspnea, pneumonia versus pulmonary malignancy. Patient states for the last 1-2 weeks she has been having worsening dyspnea. This is associated with a mildly productive cough. Denies any lower extremity edema. Denies any chest pain, abdominal pain, n ausea, vomiting. Has been compliant with medications. Is on blood thinning medications for atrial fibrillation. Previously, patient was started on antibiotics last with minimal improvement. Presented today and was found to have the findings above. Was transferred here for further evaluation, particularly for pneumonia, worsening exertional dyspnea.Denies orthopnea, PND, lower extremity edema. No history of heart failure. - Related Data Home Medications Medication Instructions Recorded Confirmed Atorvastatin Calcium [Lipitor] 20 mg PO HS 03/27/19 08/01/22 Isosorbide Mononitrate ER [Imdur] 30 mg PO DAILY 03/27/19 08/01/22 allopurinoL [Zyloprim] 300 mg PO DAILY 03/27/19 08/01/22 amLODIPine [Norvasc] 10 mg PO DAILY 03/27/19 08/01/22 Amoxic-Pot Clav 875-125Mg 1 tab PO BID 08/01/22 08/01/22 [Augmentin 875-125] Rivaroxaban [Xarelto] 20 mg PO HS 08/01/22 08/01/22 predniSONE [Deltasone] 20 mg PO BID 08/01/22 08/01/22 Previous Rx's Medication Instructions Recorded Metoprolol Tartrate [Lopressor] 25 mg PO DAILY #30 tab 03/31/19 Allergies Allergy/AdvReac Type Severity Reaction Status Date / Time No Known Allergies Allergy Verified 03/27/19 21:10 Review of Systems ROS Statement: Those systems with pertinent positive or pertinent negative responses have been documented in the HPI. Review of Systems: CONST: Denies fever EYES: Denies blurry vision ENT: Denies nasal congestion C/V: Denies Chest pain RESP: Endorses exertional shortness of breath GI: Denies abdominal pain : Denies dysuria SKIN: Denies rash. MSK: Denies joint pain. NEURO: Denies headache ROS Other: All systems not noted in ROS Statement are negative. Past Medical History Past Medical History: Atrial Fibrillation, Hyperlipidemia, Hypertension History of Any Multi-Drug Resistant Organisms: None Reported Past Surgical History: Appendectomy, Cholecystectomy, Heart Catheterization With Stent, Hysterectomy Date of Last Stent Placement:: 5 years ago Past Psychological History: No Psychological Hx Reported Smoking Status: Never smoker Past Alcohol Use History: Occasional Past Drug Use History: None Reported General Exam - General Exam Comments Initial Comments: General: Appears in no acute distress. HEAD: Normal with no signs of head trauma. EYES: PERRLA, EOMI, conjunctiva normal, no discharge. ENT: Hearing grossly intact, normal oropharynx. RESPIRATORY: Clear breath sounds bilaterally. No wheezes, rales, or rhonchi. C/V: Irregular rate and rhythm. S1 and S2 auscultated, no edema, peripheral pulses 2+ and intact throughout ABD: Abd is soft, nontender, nondistended EXT: Normal range of motion, no obvious deformity SKIN: No rashes or lesions observed on exposed skin. NEURO: Alert and oriented x 4. Cranial nerves II-XII intact. No focal sensory or strength deficits. Limitations: no limitations Course Vital Signs 08/01/22 08/01/22 08/01/22 14:05 14:08 19:00 Temperature 97.7 F 98.7 F 98.1 F Pulse Rate 78 110 H 77 Respiratory 18 16 16 Rate Blood Pressure 159/91 159/91 158/79 O2 Sat by Pulse 97 99 97 Oximetry 08/01/22 20:21 Temperature Pulse Rate 76 Respiratory 16 Rate Blood Pressure 162/74 O2 Sat by Pulse 99 Oximetry Medical Decision Making - Medical Decision Making Was pt. sent in by a medical professional or institution (, PA, CHIEF SERVICE DISPATCHER, urgent care, hospital, or fpc...) When possible be specific @ -Yes, transferred from [facility]. Did you speak to anyone other than the patient for history (EMS, parent, family, police, friend...)? What history was obtained from this source @ -No Did you review nursing and triage notes (agree or disagree)? Why? @ -I reviewed and agree with nursing and triage notes Were old charts reviewed (outside hosp., previous admission, EMS record, old EKG, old radiological studies, urgent care reports/EKG's, fpc records)? Report findings @ -Yes. Paperwork from transfer facility. Prior EKGs. Differential Diagnosis (chest pain, altered mental status, abdominal pain women, abdominal pain men, vaginal bleeding, weakness, fever, dyspnea, syncope, headache, dizziness, GI bleed, back pain, seizure, CVA, palpatations, mental health)? @ -Differential Dyspnea: Coronary syndrome, arrhythmia, tamponade, asthma, COPD, pulmonary embolism, pneumonia, pneumothorax, pulmonary effusion, anaphylaxis, diabetic ketoacidosis, flailed chest, pulmonary contusion, diaphragmatic rupture, anemia, neuromuscular, this is not meant to be an all-inclusive list. EKG interpreted by me (3pts min.). @ -As above X-rays interpreted by me (1pt min.). @ -Chest x-ray Uploaded from outside facility, no acute cardio, process. CT interpreted by me (1pt min.). @ -CT PE uploaded from outside facility revealed no evidence of pulmonary embolism. There are consolidations/densities in the right lower, right upper lobes which are concerning for pneumonia versus malignancy. U/S interpreted by me (1pt. min.). @ -None done What testing was considered but not performed or refused? (CT, X-rays, U/S, labs)? Why? @ -None What meds were considered but not given or refused? Why? @ -Lasix, however clinically patient is not presenting as congestive heart failure. She is not hypoxic at this time. BNP is elevated, however she received his Lasix earlier today. We'll hold for now and obtain an echocardiogram. Did you discuss the management of the patient with other professionals (professionals i.e. , PA, CHIEF SERVICE DISPATCHER, lab, RT, psych nurse, social sciences instructor, database support, teacher, correctional officer chief, outpatient case manager)? Give summary @ -Yes, admitting physician Dr. Vail who was in agreement with the plan. Was smoking cessation discussed for >3mins.? @ -No Was critical care preformed (if so, how long)? @ -No Were there social determinants of health that impacted care today? How? (Homelessness, low income, unemployed, alcoholism, drug addiction, transportation, low edu. Level, literacy, decrease access to med. care, group home, rehab)? @ -No Was there de-escalation of care discussed even if they declined (Discuss DNR or withdrawal of care, Hospice)? DNR status @ -No What co-morbidities impacted this encounter? (DM, HTN, Smoking, COPD, CAD, Cancer, CVA, ARF, Chemo, Hep., AIDS, mental health diagnosis, sleep apnea, morbid obesity)? @ -None Was patient admitted / discharged? Hospital course, mention meds given and ro gulkana, prescriptions, significant lab abnormalities, going to OR and other pertinent info. @ -Based on the patient's presentation and physical exam, she was transferred here for admission over concern for exertional dyspnea from either a pulmonary malignancy or possible right-sided pneumonia. Was started on azithromycin and Rocephin at the outside facility. Patient did have an elevated BNP but apparently does not have clinical signs of CHF except for the exertional dyspnea. She is no history of CHF. Echo was ordered for the patient here as well as repeat laboratory studies per laboratory studies were remarkable for continued elevated BNP but troponin is undetectable. Covid, flu swabs obtained at the outside facility were negative. I did review the patient's imaging which was uploaded from the outside facility, the patient's CT PE as well as chest x- ray which was consistent with the reads showing right-sided pneumonia versus malignancy. I discussed with the patient due to her exertional dyspnea, I would like to admit him to the hospital. As the patient was on Augmentin previously I will start her on Levaquin in addition to her azithromycin. She was in agre ement with this plan. Echo was ordered. Pulmonology was consulted. I spoke with the admitting physician, Dr. Vail accepted the patient. Patient was admitted in stable condition. Undiagnosed new problem with uncertain prognosis? @ -No Drug Therapy requiring intensive monitoring for toxicity (Heparin, Nitro, Insulin, Cardizem)? @ -No Were any procedures done? @ -No Diagnosis/symptom? @ -Right lung pneumonia versus malignancy Acute, or Chronic, or Acute on Chronic? @ -Acute Uncomplicated (without systemic symptoms) or Complicated (systemic symptoms)? @ -Complicated Side effects of treatment? @ -No Exacerbation, Progression, or Severe Exacerbation? @ -No Poses a threat to life or bodily function? How? (Chest pain, [place], [place], pneumonia, PE, COPD, DKA, ARF, appy, cholecystitis, CVA, Diverticulitis, Homicidal, Suicidal, threat to staff... and all critical care pts) @ -If untreated can result in significant morbidity and mortality. Diagnosis/symptom? @ -Exertional dyspnea Acute, or Chronic, or Acute on Chronic? @ -Acute Uncomplicated (without systemic symptoms) or Complicated (systemic symptoms)? @ -And complicated Side effects of treatment? @ -none Exacerbation, Progression, or Severe Exacerbation] @ -no Poses a threat to life or bodily function? @ -no - Lab Data Result diagrams: 08/01/22 15:27 08/01/22 15:27 Lab Results 08/01/22 08/01/22 08/01/22 Range/Units 15: 15: 15: WBC 8.8 (3.8-10.6) k/uL RBC 3.59 L (3.80-5.40) m/uL Hgb 11.4 (11.4-16.0) gm/dL Hct 32.2 L (34.0-46.0) % MCV 89.8 (80.0-100.0) fL MCH 31.8 (25.0-35.0) pg MCHC 35.4 (31.0-37.0) g/dL RDW 13.9 (11.5-15.5) % Plt Count 288 (150-450) k/uL MPV 10.2 Neutrophils % 88 % Lymphocytes % 6 % Monocytes % 4 % Eosinophils % 0 % Basophils % 0 % Neutrophils # 7.8 H (1.3-7.7) k/uL Lymphocytes # 0.6 L (1.0-4.8) k/uL Monocytes # 0.3 (0-1.0) k/uL Eosinophils # 0.0 (0-0.7) k/uL Basophils # 0.0 (0-0.2) k/uL PT 12.4 H (9.0-12.0) sec INR 1.2 H (<1.2) APTT 31.6 H (22.0-30.0) sec Sodium 136 L (137-145) mmol/L Potassium 4.2 (3.5-5.1) mmol/L Chloride 102 (98-107) mmol/L Carbon Dioxide 27 (22-30) mmol/L Anion Gap 7 mmol/L BUN 28 H (7-17) mg/dL Creatinine 0.72 (0.52-1.04) mg/dL Est GFR (CKD-EPI)AfAm 88 (>60 ml/min/1.73 sqM) Est GFR (CKD-EPI)NonAf 76 (>60 ml/min/1.73 sqM) Glucose 129 H (74-99) mg/dL Calcium 8.9 (8.4-10.2) mg/dL Magnesium 1.9 (1.6-2.3) mg/dL Total Bilirubin 0.8 (0.2-1.3) mg/dL AST 106 H (14-36) U/L ALT 98 H (4-34) U/L Alkaline Phosphatase 152 H (38-126) U/L Troponin I (0.000-0.034) ng/mL NT-Pro-B Natriuret Pep pg/mL Total Protein 6.9 (6.3-8.2) g/dL Albumin 3.7 (3.5-5.0) g/dL 08/01/22 08/01/22 Range/Units 15:27 15:27 WBC (3.8-10.6) k/uL RBC (3.80-5.40) m/uL Hgb (11.4-16.0) gm/dL Hct (34.0-46.0) % MCV (80.0-100.0) fL MCH (25.0-35.0) pg MCHC (31.0-37.0) g/dL RDW (11.5-15.5) % Plt Count (150-450) k/uL MPV Neutrophils % % Lymphocytes % % Monocytes % % Eosinophils % % Basophils % % Neutrophils # (1.3-7.7) k/uL Lymphocytes # (1.0-4.8) k/uL Monocytes # (0-1.0) k/uL Eosinophils # (0-0.7) k/uL Basophils # (0-0.2) k/uL PT (9.0-12.0) sec INR (<1.2) APTT (22.0-30.0) sec Sodium (137-145) mmol/L Potassium (3.5-5.1) mmol/L Chloride (98-107) mmol/L Carbon Dioxide (22-30) mmol/L Anion Gap mmol/L BUN (7-17) mg/dL Creatinine (0.52-1.04) mg/dL Est GFR (CKD-EPI)AfAm (>60 ml/min/1.73 sqM) Est GFR (CKD-EPI)NonAf (>60 ml/min/1.73 sqM) Glucose (74-99) mg/dL Calcium (8.4-10.2) mg/dL Magnesium (1.6-2.3) mg/dL Total Bilirubin (0.2-1.3) mg/dL AST (14-36) U/L ALT (4-34) U/L Alkaline Phosphatase (38-126) U/L Troponin I <0.012 (0.000-0.034) ng/mL NT-Pro-B Natriuret Pep 4440 pg/mL Total Protein (6.3-8.2) g/dL Albumin (3.5-5.0) g/dL - EKG Data -: EKG Interpreted by Me EKG Comments: 12-lead Electrocardiogram Interpretation Note EKG was reviewed and interpreted by myself. 12-lead ECG performed at 1423 is interpreted by me as revealing atrial fibrillation at a rate of 110 beats per minute. Brigantine is normal. There were no ST or T wave abnormalities to suggest myocardial ischemia or injury. R wave progression across the precordium was satisfactory. By my interpretation this EKG is non-diagnostic for acute i schemia. When compared with EKG from March 2019, no significant change. Disposition Clinical Impression: Community acquired pneumonia, Exertional dyspnea Narrative: concern for right lung malignancy vs pneumonia. Disposition: ADMITTED IP TO THIS HOSP Condition: Stable Time of Disposition: 17:05
[2022-08-02 06:22] LABS: Glucose,Whole Blood 98 mg/dL (70-110)
[2022-08-02] MEDS: allopurinoL 300 MG TAB PO SCH (07:44)
[2022-08-02] MEDS: ISOSORBIDE MONONITRATE ER 30 MG TAB.ER.24H PO SCH (07:44)
[2022-08-02] MEDS: amLODIPine 10 MG TAB PO SCH (07:44)
[2022-08-02] MEDS ORDERED: METOPROLOL TARTRATE 25 MG TAB PO SCH (09:00)
[2022-08-02 09:18] LABS: Basophils # (A) 0.03 X 10*3/uL (0.00-0.10); Basophils % (A) 0.4 %; Eosinophils # (A) 0.01 X 10*3/uL (0.04-0.35); Eosinophils % (A) 0.1 %; HGB 11.4 g/dL (12.0-15.0); Immature Grans, Automated 0.6 %; Lymphocytes # (A) 1.62 X 10*3/uL (0.90-5.00); Lymphocytes % (A) 20.5 %; MCH 30.1 pg (27.0-32.0); MCHC 32.6 g/dL (32.0-37.0); MCV 92.3 fL (80.0-97.0); Mean Platelet Volume 11.6 fL (9.5-12.2); Monocytes # (A) 0.96 X 10*3/uL (0.20-1.00); Monocytes % (A) 12.1 %; NRBC Per 100 WBC 0 /100 WBCS (0.0-0.0); Neutrophils # (A) 5.25 X 10*3/uL (1.80-7.70); Neutrophils % (A) 66.3 %; Platelet Count 300 X 10*3/uL (140-440); RBC 3.79 X 10*6/uL (4.10-5.20); RDW 13.5 % (11.5-14.5); WBC 7.92 X 10*3/uL (4.50-10.00)
[2022-08-02 09:27] LABS: African American GFR (CKD) 66.6 (60.0-200.0); Anion Gap 10.7 mmol/L (10.00-18.00); BUN/Creat Ratio 27.33 Ratio (12.00-20.00); Blood Urea Nitrogen 24.6 mg/dL (9.0-27.0); Calcium 9.3 mg/dL (8.7-10.3); Carbon Dioxide 27.3 mmol/L (20.0-27.5); Non-African American GFR(CKD) 57.5 (60.0-200.0); Potassium 3.8 mmol/L (3.5-5.5)
[2022-08-02] MEDS: LORATADINE 10 MG TAB PO SCH ×2 (10:54→20:44)
[2022-08-02] MEDS: predniSONE 20 MG TAB PO SCH (10:54)
--- NOTE | 2022-08-02 11:42 | P.CNPUL ---
History of Present Illness Consult date: 08/02/22 Reason for consult: dyspnea History of present illness: This is a 7-year-old female patient will go transferred to us from [facility] for increased shortness of breath. The patient was having increased dyspnea. For that reason, she initially went in to [facility] with her symptoms. She was having symptoms of URI since 2021 along with some shortness of breath. EKG showed no acute ST segment jaycob nges. Chest x-ray showed no acute cardiac pulmonary process. Her proBNP level was 4400 and the troponins were negative. A CT angiogram was done and it showed no evidence of any pulmonary embolism. She had scattered areas of pneumonitis bilaterally in addition to multiple increased densities in the right lower lobe and the right upper lobe of the lung that were new and is obviously raises the c oncern for malignancy and for that reason the patient got transferred to us for further evaluation and management. I reviewed the CAT scan of the chest and my overall concern for malignancy is quite low in this patient. I do not see solid areas of masses. The nodule described earlier are essentially inflammatory. In addition, there is no evidence of any significant mediastinal lymphadenopathy. There may be some minimal enlargement of the subcarinal lymph nodes. For now, the patient has a WBC count of 7.9 with a hemoglobin 11.4 and a platelet count of 300. Sodium is at 139 and a potassium level is at 3.8 with a BUN of 24 and a creatinine of 0.9. ProBNP level was elevated at 4440. No viral serology has been obtained on this patient. She is currently on Levaquin and Zithromax. She is on prednisone 40 mg by mouth daily. She is already on long-term and coagulation regarding chronic atrial fibrillation. The patient is known to us. She was last hospitalized back in February 2019 for some chest discomfort. At that time, the patient was treated and she was discharged home. 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 Based on earlier echocardiograms, the patient has a preserved LV function. Review of Systems Constitutional: Reports as per HPI Eyes: denies as per HPI, denies blurred vision, denies bulging eye, denies decreased vision, denies diplopia, denies discharge, denies dry eye, denies irritation, denies itching, denies pain, denies photophobia, denies loss of peripheral vision, denies loss of vision, denies tunnel vision/blind spots Ears: deny: decreased hearing, ear discharge, earache, tinnitus Ears, nose, mouth and throat: Reports as per HPI Breasts: absent: as per HPI, change in shape, gynecomastia, masses, nipple discharge, pain, skin changes, swelling Cardiovascular: Reports dyspnea on exertion, Reports irregular heart beat Respiratory: Reports congestion, Reports cough, Reports dyspnea Gastrointestinal: Reports as per HPI Genitourinary: Reports as per HPI Menstruation: Reports as per HPI Musculoskeletal: Reports as per HPI Musculoskeletal: absent: ankle pain, ankle stiffness, ankle swelling Integumentary: Reports as per HPI Neurological: Reports as per HPI Psychiatric: Reports as per HPI Endocrine: Reports as per HPI Hematologic/Lymphatic: Reports as per HPI Allergic/Immunologic: Reports as per HPI Past Medical History Past Medical History: Atrial Fibrillation, Coronary Artery Disease (CAD), H yperlipidemia, Hypertension Additional Past Medical History / Comment(s): stent placed 2018 History of Any Multi-Drug Resistant Organisms: None Reported Past Surgical History: Appendectomy, Heart Catheterization With Stent, H ysterectomy Date of Last Stent Placement:: 5 years ago Past Psychological History: No Psychological Hx Reported Smoking Status: Never smoker Past Alcohol Use History: Occasional Past Drug Use History: None Reported Medications and Allergies Home Medications Medication Instructions Recorded Confirmed Type Atorvastatin Calcium [Lipitor] 20 mg PO HS 03/27/19 08/01/22 History Isosorbide Mononitrate ER [Imdur] 30 mg PO DAILY 03/27/19 08/01/22 History allopurinoL [Zyloprim] 300 mg PO DAILY 03/27/19 08/01/22 History amLODIPine [Norvasc] 10 mg PO DAILY 03/27/19 08/01/22 History Metoprolol Tartrate [Lopressor] 25 mg PO DAILY #30 tab 03/31/19 08/01/22 Rx Amoxic-Pot Clav 875-125Mg 1 tab PO BID 08/01/22 08/01/22 History [Augmentin 875-125] Rivaroxaban [Xarelto] 20 mg PO HS 08/01/22 08/01/22 History predniSONE [Deltasone] 20 mg PO BID 08/01/22 08/01/22 History Allergies Allergy/AdvReac Type Severity Reaction Status Date / Time No Known Allergies Allergy Verified 03/27/19 21:10 Physical Exam Vitals: Vital Signs Temp Pulse Pulse Resp BP BP Pulse Ox 08/02/22 09:49 43 L 151/63 98 08/02/22 07:50 98.0 F 52 L 17 148/76 97 08/02/22 02:00 97.7 F 60 17 177/83 91 L 08/01/22 20:21 76 16 162/74 99 08/01/22 19:00 98.1 F 77 16 158/79 97 08/01/22 14:08 98.7 F 110 H 16 159/91 99 08/01/22 14:05 97.7 F 78 18 159/91 97 Intake and Output 08/01/22 08/02/22 08/02/22 22:59 06:59 14:59 Other: Voiding Method Toilet # Voids 4 1 # Bowel Movements 2 Weight 77.111 kg GENERAL: The patient is alert and oriented x3, not in any acute distress. Well developed, well nourished. Patient is currently on room air oxygen. HEENT: Pupils are round and equally reacting to light. EOMI. No scleral icterus. No conjunctival pallor. Normocephalic, atraumatic. No pharyngeal erythema. No thyromegaly. CARDIOVASCULAR: S1 and S2 present. No murmurs, rubs, or gallops. PULMONARY: Chest is clear to auscultation, no wheezing or crackles. ABDOMEN: Soft, nontender, nondistended, normoactive bowel sounds. No palpable organomegaly. MUSCULOSKELETAL: No joint swelling or deformity. EXTREMITIES: No cyanosis, clubbing, or pedal edema. NEUROLOGICAL: Gross neurological examination did not reveal any focal deficits. SKIN: No rashes. Neurologically, the patient is awake and alert and the patient does not have any focal neurological deficit. Cranial nerves are essentially intact. Results - Laboratory Findings CBC and BMP: 08/02/22 05:54 08/02/22 05:54 PT/INR, D-dimer PT 12.4 sec (9.0-12.0) H 08/01/22 15:27 INR 1.2 (<1.2) H 08/01/22 15:27 Abnormal lab findings: Abnormal Labs 08/01/22 08/01/22 08/01/22 15:27 15:27 15:27 RBC 3.59 L Hgb Hct 32.2 L Immature Gran # Neutrophils # 7.8 H Lymphocytes # 0.6 L Eosinophils # PT 12.4 H INR 1.2 H APTT 31.6 H Sodium 136 L BUN 28 H Est GFR (CKD-EPI)NonAf BUN/Creatinine Ratio Glucose 129 H AST 106 H ALT 98 H Alkaline Phosphatase 152 H 08/02/22 08/02/22 05:54 05:54 RBC 3.79 L Hgb 11.4 L Hct 35.0 L Immature Gran # 0.05 H Neutrophils # Lymphocytes # Eosinophils # 0.01 L PT INR APTT Sodium BUN Est GFR (CKD-EPI)NonAf 57.5 L BUN/Creatinine Ratio 27.33 H Glucose AST ALT Alkaline Phosphatase - Diagnostic Findings CT scan - chest: image reviewed Assessment and Plan Plan: Atypical pneumonia with symptoms of cough and congestion. I reviewed the CAT scan of the chest and there is some inflammatory opacities bilaterally, tiny, nonspecific finding, unlikely to be malignancy. I favor infection or postinfectious changes. Clinically the patient is improving. The findings are very much consistent with viral pneumonia although the patient had a viral screen that was done and it [facility] which included influenza, Covid 19 and RSV and those viruses came back negative. Mycoplasma, Legionella cannot be completely excluded. Noted the patient was treated with Augmentin on outpatient basis. Cough and congestion, improving Coronary artery disease with previous coronary stenting Chronic into fibrillation maintained on long-term and coagulation with Eliquis Hypertension Hyperlipidemia Degenerative arthritis Plan I reassured the patient. Check Legionella urine antigen Check mycoplasma antibodies Continue same antibiotic coverage which includes Levaquin Prednisone burst taper starting with 40 mg DuoNeb nebulized treatments [id number] Possible discharge in the next 24-48 hours
[2022-08-02] MEDS: ALBUTEROL NEBULIZED 2.5 MG/3 ML INHALATION SCH ×4 (12:10→20:36)
[2022-08-02] MEDS: BUDESONIDE 1 MG/2 ML NEBU INHALATION SCH ×2 (12:11→20:35)
--- NOTE | 2022-08-02 12:33 | P.HPIM ---
History of Present Illness H&P Date: 08/01/22 Chief Complaint: Short of breath This is a pleasant 87-year-old patient who follows Dr. Bernardo. I saw this patient in ER room 10 when patient's chart was not ready. Patient is accompanied by her daughterdedrick. Chronic stable medical conditions include atrial fibrillation, CAD with stent, hypertension, hyperlipidemia. Patient presents stating that she has been short of breath on and off for about a year. With a week ago she started becoming increasingly short of breath had a sore throat fever no cough felt like strep throat. Also had a fever up to 101. Decreased appetite. No change in bowel pattern. Subsequently patient presented to [facility] fluid overload was given some Lasix. Transferred here. Patient is a bit stuffy and congested. Having some phlegm that is coffee colored. Tired. Review of systems: GEN.: Fever, tired, decreased appetite EYES: None HEENT: Sore throat NECK: None RESPIRATORY: Short of breath, no edema CARDIOVASCULAR: None GASTROINTESTINAL: None GENITOURINARY: None MUSCULOSKELETAL: Joint pain LYMPHATICS: None HEMATOLOGICAL: None PSYCHIATRY: None NEUROLOGICAL: None Past medical history to include: Atrial fibrillation, CAD with stent, hypertension, hyperlipidemia, Social history: Nonsmoker. Alcohol occasionally. Lives with her . Physical examination: VITAL SIGNS: 97.7, 78, 18, 159/91, 97% room air GENERAL: BMI 27.4, declining, tired. EYES: Pupils equal. Conjunctiva normal. HEENT: External appearance of nose and ears normal, oral cavity grossly normal. NECK: JVD not raised; masses not palpable. HEART: First and second heart sounds are normal; no edema. LUNGS: Respiratory rate increased; mild wheezing and slight crackle. ABDOMEN: Soft, nontender, liver spleen not palpable, no masses palpable. PSYCH: Alert and oriented x3; mood and affect anxiousl. MUSCULOSKELETAL:No Clubbing/cyanosis;muscles-grossly intact. OA NEUROLOGICAL: Cranial nerves grossly intact; no facial asymmetry, power and sensation grossly intact. LYMPHATICS: No lymph nodes palpable in the axilla and neck INVESTIGATIONS, reviewed in the clinical context: White count 8.8 hemoglobin 11.4 platelets 288 ProTime 12.4 sodium 136 potassium 4.2 creatinine 0.7 to AST 106 ALT 98 proBNP 4440 Troponin I less than 0.012 EKG tracing personally reviewed by me-atrial flutter fibrillation with a rate of 110 Assessment and plan: -Probable acute viral pneumonitis. Symptomatic care -Hyperuricemia Allopurinol 300 mg a day -Essential hypertension Amlodipine 10 mg a day, Lopressor, Imdur -Persistent atrial fibrillation Xarelto. Lopressor -Hyperlipidemia Lipitor -CAD with a history of stent Xarelto. Lopressor, Lipitor Patient clinically does not seem to have evidence of CHF. Consultation to pulmonary been done. Home medications be verified and resumed. Care was discussed with the patient and [id number] at the bedside. Questions answered. Past Medical History Past Medical History: Atrial Fibrillation, Coronary Artery Disease (CAD), Hyperlipidemia, Hypertension Additional Past Medical History / Comment(s): stent placed 2017 History of Any Multi-Drug Resistant Organisms: None Reported Past Surgical History: Appendectomy, Heart Catheterization With Stent, Hysterectomy Date of Last Stent Placement:: 5 years ago Past Psychological History: No Psychological Hx Reported Smoking Status: Never smoker Past Alcohol Use History: Occasional Past Drug Use History: None Reported Medications and Allergies Home Medications Medication Instructions Recorded Confirmed Type Atorvastatin Calcium [Lipitor] 20 mg PO HS 03/27/19 08/01/22 History Isosorbide Mononitrate ER [Imdur] 30 mg PO DAILY 03/27/19 08/01/22 History allopurinoL [Zyloprim] 300 mg PO DAILY 03/27/19 08/01/22 History amLODIPine [Norvasc] 10 mg PO DAILY 03/27/19 08/01/22 History Metoprolol Tartrate [Lopressor] 25 mg PO DAILY #30 tab 03/31/19 08/01/22 Rx Amoxic-Pot Clav 875-125Mg 1 tab PO BID 08/01/22 08/01/22 History [Augmentin 875-125] Rivaroxaban [Xarelto] 20 mg PO HS 08/01/22 08/01/22 History predniSONE [Deltasone] 20 mg PO BID 08/01/22 08/01/22 History Allergies Allergy/AdvReac Type Severity Reaction Status Date / Time No Known Allergies Allergy Verified 03/27/19 21:10 Physical Exam Vitals: Vital Signs Temp Pulse Pulse Resp BP BP Pulse Ox 08/02/22 12:13 52 L 08/02/22 09:49 43 L 151/63 98 08/02/22 07:50 98.0 F 52 L 17 148/76 97 08/02/22 02:00 97.7 F 60 17 177/83 91 L 08/01/22 20:21 76 16 162/74 99 08/01/22 19:00 98.1 F 77 16 158/79 97 08/01/22 14:08 98.7 F 110 H 16 159/91 99 08/01/22 14:05 97.7 F 78 18 159/91 97 Intake and Output 08/01/22 08/02/22 08/02/22 22:59 06:59 14:59 Other: Voiding Method Toilet # Voids 4 1 # Bowel Movements 2 Weight 77.111 kg Results CBC & Chem 7: 08/02/22 05:54 08/02/22 05:54 Labs: Abnormal Lab Results - Last 24 Hours (Table) 08/01/22 08/01/22 08/01/22 Range/Units 15:27 15:27 15:27 RBC 3.59 L (3.80-5.40) m/uL Hgb (12.0-15.0) g/dL Hct 32.2 L (34.0-46.0) % Immature Gran # (0.00-0.04) X 10*3/uL Neutrophils # 7.8 H (1.3-7.7) k/uL Lymphocytes # 0.6 L (1.0-4.8) k/uL Eosinophils # (0.04-0.35) X 10*3/uL PT 12.4 H (9.0-12.0) sec INR 1.2 H (<1.2) APTT 31.6 H (22.0-30.0) sec Sodium 136 L (137-145) mmol/L BUN 28 H (7-17) mg/dL Est GFR (CKD-EPI)NonAf (60.0-200.0) BUN/Creatinine Ratio (12.00-20.00) Ratio Glucose 129 H (74-99) mg/dL AST 106 H (14-36) U/L ALT 98 H (4-34) U/L Alkaline Phosphatase 152 H (38-126) U/L 08/02/22 08/02/22 Range/Units 05:54 05:54 RBC 3.79 L (3.80-5.40) m/uL Hgb 11.4 L (12.0-15.0) g/dL Hct 35.0 L (34.0-46.0) % Immature Gran # 0.05 H (0.00-0.04) X 10*3/uL Neutrophils # (1.3-7.7) k/uL Lymphocytes # (1.0-4.8) k/uL Eosinophils # 0.01 L (0.04-0.35) X 10*3/uL PT (9.0-12.0) sec INR (<1.2) APTT (22.0-30.0) sec Sodium (137-145) mmol/L BUN (7-17) mg/dL Est GFR (CKD-EPI)NonAf 57.5 L (60.0-200.0) BUN/Creatinine Ratio 27.33 H (12.00-20.00) Ratio Glucose (74-99) mg/dL AST (14-36) U/L ALT (4-34) U/L Alkaline Phosphatase (38-126) U/L Thrombosis Risk Factor Assmnt - Choose All That Apply Each Factor Represents 1 point: Obesity (BMI >25) Other Risk Factors: Yes Each Risk Factor Represents 3 Points: Age 75 years or older Other congenital or acquired thrombophilia - If yes, enter type in comment: No Thrombosis Risk Factor Assessment Total Risk Factor Score: 4 Thrombosis Risk Factor Assessment Level: Moderate Risk
--- NOTE | 2022-08-02 13:49 | XR ---
EXAMINATION TYPE: XR chest 2V DATE OF EXAM: 08/02/2022 COMPARISON: 03/27/2019 TECHNIQUE: PA and lateral views submitted. HISTORY: Cough FINDINGS: The lungs are clear and there is no pneumothorax, pleural effusion, or focal pneumonia. Heart size upper limits of normal. Atherosclerotic change aorta. Vague pleural thickening. Chronic rib cage defo rmity is seen. No overt failure. Hypertrophic and degenerative changes of the spine. Hyperinflation s uggests COPD. IMPRESSION: 1. No acute process. Correlate for COPD.
--- NOTE | 2022-08-02 15:51 | P.PN ---
Progress Note - Text Progress Note Date: 08/02/22 Chief Complaint: Short of breath This is a pleasant 87-year-old patient who follows Dr. Bernardo. I saw this patient in ER room 10 when patient's chart was not ready. Patient is accompanied by her daughterdedrick. Chronic stable medical conditions include atrial fibrillation, CAD with stent, hypertension, hyperlipidemia. Patient presents stating that she has been short of breath on and off for about a year. With a week ago she started becoming increasingly short of breath had a sore throat fever no cough felt like strep throat. Also had a fever up to 101. Decreased appetite. No change in bowel pattern. Subsequently patient presented to [facility] fluid overload was given some Lasix. Transferred here. Patient is a bit stuffy and congested. Having some phlegm that is coffee colored. Tired. 08/02/2022: Some nasal congestion some wheezing and cough. Claritin added. On albuterol. Eating some. On Levaquin. Tired Active Medications Albuterol Sulfate (Albuterol Nebulized 2.5 Mg/3 Ml) 2.5 mg INHALATION RT-QID SC H Last Admin: 08/02/22 12:19 Dose: Not Given Allopurinol (Allopurinol 300 Mg Tab) 300 mg PO DAILY [facility] Last Admin: 08/02/22 07:44 Dose: 300 mg Amlodipine Besylate (Amlodipine 10 Mg Tab) 10 mg PO DAILY [facility] Last Admin: 08/02/22 07:44 Dose: 10 mg Atorvastatin Calcium (Atorvastatin 20 Mg Tab) 20 mg PO HS [facility] Last Admin: 08/01/22 20:20 Dose: 20 mg Budesonide (Budesonide 1 Mg/2 Ml Nebu) 1 mg INHALATION RT-BID [facility] Last Admin: 08/02/22 12:11 Dose: Not Given Levofloxacin 750 mg/ IV (Solution) 150 mls @ 100 mls/hr IVPB Q48H [facility]; Protocol Isosorbide Mononitrate (Isosorbide Mononitrate Er 30 Mg Tab.Er.24h) 30 mg PO DAILY [facility] Last Admin: 08/02/22 07:44 Dose: 30 mg Loratadine (Loratadine 10 Mg Tab) 5 mg PO Q12HR [facility] Last Admin: 08/02/22 10:54 Dose: 5 mg Naloxone HCl (Naloxone 0.4 Mg/Ml 1 Ml Vial) 0.2 mg IV Q2M PRN PRN Reason: Opioid Reversal Prednisone (Prednisone 20 Mg Tab) 40 mg PO DAILY [facility] Last Admin: 08/02/22 10:54 Dose: 40 mg Rivaroxaban (Rivaroxaban 20 Mg Tab) 20 mg PO HS [facility]; Protocol Last Admin: 08/01/22 20:23 Dose: 20 mg Past medical history to include: Atrial fibrillation, CAD with stent, hypertension, hyperlipidemia, Social history: Nonsmoker. Alcohol occasionally. Lives with her . Physical examination: VITAL SIGNS: 97.5, 59, 17, 149/55, 98% room air GENERAL: Reclining in bed, awake, tired EYES: Pupils equal. Conjunctiva normal. HEENT: External appearance of nose and ears normal, oral cavity grossly normal. NECK: JVD not raised; masses not palpable. HEART: First and second heart sounds are normal; no edema. LUNGS: Respiratory rate increased; mild wheezing and slight crackle. ABDOMEN: Soft, nontender, liver spleen not palpable, no masses palpable. PSYCH: Alert and oriented x3; mood and affect anxiousl. MUSCULOSKELETAL:No Clubbing/cyanosis;muscles-grossly intact. OA INVESTIGATIONS, reviewed in the clinical context: 08/02/2022: White count 7.9 hemoglobin 11.4 percussion 3.8 creatinine 0.9 White count 8.8 hemoglobin 11.4 platelets 288 ProTime 12.4 sodium 136 potassium 4.2 creatinine 0.7 to AST 106 ALT 98 proBNP 4440 Troponin I less than 0.012 EKG tracing personally reviewed by me-atrial flutter fibrillation with a rate of 110 Assessment and plan: -Probable acute viral pneumonitis. Cannot rule out gram-negative secondary organism. Levaquin -Secondary bronchospasm Ventolin -Hyperuricemia Allopurinol 300 mg a day -Essential hypertension Amlodipine 10 mg a day, Lopressor, Imdur -Persistent atrial fibrillation Xarelto. Lopressor -Hyperlipidemia Lipitor -CAD with a history of stent Xarelto. Lopressor, Lipitor Patient clinically does not seem to have evidence of CHF. Consultation to pulmonary been done. Home medications be verified and resumed. Care was discussed with the patient and [id number] at the bedside. Questions answered.
[2022-08-02] MEDS ORDERED: LEVOFLOXACIN 750MG-D5W PMX 750 MG in DEXTROSE/WATER 1 150ML.BAG IVPB SCH (18:00)
[2022-08-02] MEDS: ATORVASTATIN 20 MG TAB PO SCH (20:44)
[2022-08-02] MEDS: RIVAROXABAN 20 MG TAB PO SCH (20:44)
--- NOTE | 2022-08-03 07:09 | XR ---
EXAMINATION TYPE: XR chest 1V portable DATE OF EXAM: 08/03/2022 CLINICAL HISTORY: Difficulty breathing progress study. TECHNIQUE: Single AP portable upright view of the chest is obtained. COMPARISON: Chest x-ray from one day earlier and older studies. FINDINGS: Mild cardiomegaly with atherosclerotic thoracic aorta redemonstrated. Osseous structures a re demineralized. There are chronic parenchymal changes without suspicious focal airspace opacity, pl eural effusion, or pneumothorax seen. IMPRESSION: Chronic changes and cardiomegaly without acute pulmonary process. No significant change f rom one day earlier.
[2022-08-03] MEDS: LORATADINE 10 MG TAB PO SCH ×2 (08:17→20:46)
[2022-08-03] MEDS: predniSONE 20 MG TAB PO SCH (08:17)
[2022-08-03] MEDS: ISOSORBIDE MONONITRATE ER 30 MG TAB.ER.24H PO SCH (08:18)
[2022-08-03] MEDS: amLODIPine 10 MG TAB PO SCH (08:18)
[2022-08-03] MEDS: allopurinoL 300 MG TAB PO SCH (08:18)
[2022-08-03] MEDS: ALBUTEROL NEBULIZED 2.5 MG/3 ML INHALATION SCH ×4 (08:20→21:07)
[2022-08-03] MEDS: BUDESONIDE 1 MG/2 ML NEBU INHALATION SCH ×2 (08:20→21:07)
--- NOTE | 2022-08-03 08:28 | US ---
EXAMINATION TYPE: US abdomen limited DATE OF EXAM: 08/03/2022 COMPARISON: CT thorax from 2 days earlier CLINICAL HISTORY: Elevated liver enzymes. Abnormal labs. TECHNIQUE: Multiple sonographic images of the right upper quadrant are obtained. FINDINGS: EXAM MEASUREMENTS: Liver Length: 14.5 cm Gallbladder Wall: 0.2 cm CBD: 0.3 cm Right Kidney: 9.4 x 4.8 x 4.1 cm Pancreas: Limited visualization of head and tail due to bowel gas Liver: Heterogeneous Gallbladder: wnl Evidence for sonographic Smith's sign: neg CBD: wnl Right Kidney: No hydronephrosis or masses seen IMPRESSION: Heterogeneous hyperechoic appearance the liver consistent with diffuse fatty infiltration and/or underlying hepatocellular disease. No biliary dilatation noted. No ascites present.
--- NOTE | 2022-08-03 12:58 | P.PN ---
Subjective Progress Note Date: 08/03/22 This is a 7-year-old female patient will go transferred to us from [facility] for increased shortness of breath. The patient was having increased dyspnea. For that reason, she initially went in to [facility] with her symptoms. She was having symptoms of URI since of 2021 along with some shortness of breath. EKG showed no acute ST segment changes. Chest x-ray showed no acute cardiac pulmonary process. Her proBNP level was 4400 and the troponins were negative. A CT angiogram was done and it showed no evidence of any pulmonary embolism. She had scattered areas of pneumonitis bilaterally in addition to multiple increased densities in the right lower lobe and the right upper lobe of the lung that were new and is obviously raises the concern for malignancy and for that reason the patient got transferred to us for further evaluation and management. I reviewed the CAT scan of the chest and my overall concern for malignancy is quite low in this patient. I do not see solid areas of masses. The nodule described earlier are essentially inflammatory. In addition, there is no evidence of any significant mediastinal lymphadenopathy. There may be some minimal enlargement of the subcarinal lymph nodes. For now, the patient has a WBC count of 7.9 with a hemoglobin 11.4 and a platelet count of 300. Sodium is at 139 and a potassium level is at 3.8 with a BUN of 24 and a creatinine of 0.9. ProBNP level was elevated at 4440. No viral serology has been obtained on this patient. She is currently on Levaquin and Zithromax. She is on prednisone 40 mg by mouth daily. She is already on long-term and coagulation regarding chronic atrial fibrill ation. The patient is known to us. She was last hospitalized back in February 2019 for some chest discomfort. At that time, the patient was treated and she was discharged home. 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 Based on earlier echocardiograms, the patient has a preserved LV function. 08/03/2022, patient remains much improved and she is on room air oxygen. Cough congestion chest tightness and wheezing has subsided significantly. He compla ints otherwise for now. Legionella urine antigen was negative. Her pro calcitonin level is at 0.11. Objective - Vital Signs Vital signs: Vital Signs Temp 98.0 F 08/03/22 07:24 Pulse 62 08/03/22 11:49 Resp 18 08/03/22 07:24 BP 170/69 08/03/22 07:24 Pulse Ox 98 08/03/22 08:23 FiO2 Intake & Output 08/02/22 08/03/22 08/03/22 18:59 06:59 18:59 Other: Voiding Method Toilet # Voids 1 2 # Bowel Movements 2 1 - Exam GENERAL: The patient is alert and oriented x3, not in any acute distress. Well developed, well nourished. Patient is currently on room air oxygen. HEENT: Pupils are round and equally reacting to light. EOMI. No scleral icterus. No conjunctival pallor. Normocephalic, atraumatic. No pharyngeal erythema. No thyromegaly. CARDIOVASCULAR: S1 and S2 present. No murmurs, rubs, or gallops. PULMONARY: Chest is clear to auscultation, no wheezing or crackles. ABDOMEN: Soft, nontender, nondistended, normoactive bowel sounds. No palpable organomegaly. MUSCULOSKELETAL: No joint swelling or deformity. EXTREMITIES: No cyanosis, clubbing, or pedal edema. NEUROLOGICAL: Gross neurological examination did not reveal any focal deficits. SKIN: No rashes. Neurologically, the patient is awake and alert and the patient does not have any focal neurological deficit. Cranial nerves are essentially intact. - Labs CBC & Chem 7: 08/02/22 05:54 08/02/22 05:54 Labs: Abnormal Lab Results - Last 24 Hours (Table) 08/02/22 Range/Units 10:49 Procalcitonin 0.11 H (0.02-0.09) ng/mL Microbiology - Last 24 Hours (Table) 08/01/22 15:15 Blood Culture - Preliminary Blood No Growth after 24 hours 08/01/22 15:00 Blood Culture - Preliminary Blood No Growth after 24 hours Assessment and Plan Plan: Atypical pneumonia with symptoms of cough and congestion. I reviewed the CAT scan of the chest and there is some inflammatory opacities bilaterally, tiny, nonspecific finding, unlikely to be malignancy. I favor infection or postinfectious changes. Clinically the patient is improving. The findings are very much consistent with viral pneumonia although the patient had a viral screen that was done and it [facility] which included influenza, Covid 19 and RSV and those viruses came back negative. Mycoplasma, Legionella cannot be completely excluded. Noted the patient was treated with Augmentin on outpatient basis. Cough and congestion, improving Coronary artery disease with previous coronary stenting Chronic into fibrillation maintained on long-term and coagulation with Eliquis Hypertension Hyperlipidemia Degenerative arthritis Plan I reassured the patient. Clinically the patient is improving. I think she should be able to get discharged home in the next 24 hours. Legionella urine antigen is negative. Pro-calcitonin level is low. Continue same antibiotic coverage which includes Levaquin Prednisone burst taper starting with 40 mg DuoNeb nebulized treatments [id number] Possible discharge in the next 24-48 hours
--- NOTE | 2022-08-03 15:18 | P.PN ---
Progress Note - Text Progress Note Date: 08/03/22 Chief Complaint: Short of breath This is a pleasant 87-year-old patient who follows Dr. Bernardo. I saw this patient in ER room 10 when patient's chart was not ready. Patient is accompanied by her daughterdedrick. Chronic stable medical conditions include atrial fibrillation, CAD with stent, hypertension, hyperlipidemia. Patient presents stating that she has been short of breath on and off for about a year. With a week ago she started becoming increasingly short of breath had a sore throat fever no cough felt like strep throat. Also had a fever up to 101. Decreased appetite. No change in bowel pattern. Subsequently patient presented to [facility] fluid overload was given some Lasix. Transferred here. Patient is a bit stuffy and congested. Having some phlegm that is coffee colored. Tired. 08/02/2022: Some nasal congestion some wheezing and cough. Claritin added. On albuterol. Eating some. On Levaquin. Tired 08/03/2022: Breathing better. Decreased congestion. Some improvement in appetite. Encouraged to ambulate. On Levaquin. Increase activity. Active Medications Albuterol Sulfate (Albuterol Nebulized 2.5 Mg/3 Ml) 2.5 mg INHALATION RT-QID [facility] Last Admin: 08/03/22 11:38 Dose: 2.5 mg Allopurinol (Allopurinol 300 Mg Tab) 300 mg PO DAILY [facility] Last Admin: 08/03/22 08:18 Dose: 300 mg Amlodipine Besylate (Amlodipine 10 Mg Tab) 10 mg PO DAILY [facility] Last Admin: 08/03/22 08:18 Dose: 10 mg Atorvastatin Calcium (Atorvastatin 20 Mg Tab) 20 mg PO HS [facility] Last Admin: 08/02/22 20:44 Dose: 20 mg Budesonide (Budesonide 1 Mg/2 Ml Nebu) 1 mg INHALATION RT-BID [facility] Last Admin: 08/03/22 08:20 Dose: 1 mg Levofloxacin 750 mg/ IV (Solution) 150 mls @ 100 mls/hr IVPB Q48H [facility]; Protocol Isosorbide Mononitrate (Isosorbide Mononitrate Er 30 Mg Tab.Er.24h) 30 mg PO DAILY [facility] Last Admin: 08/03/22 08:18 Dose: 30 mg Loratadine (Loratadine 10 Mg Tab) 5 mg PO Q12HR [facility] Last Admin: 08/03/22 08:17 Dose: 5 mg Naloxone HCl (Naloxone 0.4 Mg/Ml 1 Ml Vial) 0.2 mg IV Q2M PRN PRN Reason: Opioid Reversal Prednisone (Prednisone 20 Mg Tab) 40 mg PO DAILY [facility] Last Admin: 08/03/22 08:17 Dose: 40 mg Rivaroxaban (Rivaroxaban 20 Mg Tab) 20 mg PO HS [facility]; Protocol Last Admin: 08/02/22 20:44 Dose: 20 mg Past medical history to include: Atrial fibrillation, CAD with stent, hypertension, hyperlipidemia, Social history: Nonsmoker. Alcohol occasionally. Lives with her . Physical examination: VITAL SIGNS: 98, 57, 18, 170/69, 94% room air GENERAL: Reclining in bed, comfortable EYES: Pupils equal. Conjunctiva normal. HEENT: External appearance of nose and ears normal, oral cavity grossly normal. NECK: JVD not raised; masses not palpable. HEART: First and second heart sounds are normal; no edema. LUNGS: Respiratory rate increased; mild wheezing ABDOMEN: Soft, nontender, liver spleen not palpable, no masses palpable. PSYCH: Alert and oriented x3; mood and affect anxious. MUSCULOSKELETAL:No Clubbing/cyanosis;muscles-grossly intact. OA INVESTIGATIONS, reviewed in the clinical context: Urine Legionella antigen: Negative 08/02/2022: White count 7.9 hemoglobin 11.4 percussion 3.8 creatinine 0.9 White count 8.8 hemoglobin 11.4 platelets 288 ProTime 12.4 sodium 136 potassium 4.2 creatinine 0.7 to AST 106 ALT 98 proBNP 4440 Troponin I less than 0.012 EKG tracing personally reviewed by me-atrial flutter fibrillation with a rate of 110 Assessment and plan: -Probable acute viral pneumonitis. Possible secondary gram-negative secondary organism. Pneumonia Levaquin -Secondary bronchospasm Ventolin -Hyperuricemia Allopurinol 300 mg a day -Essential hypertension Amlodipine 10 mg a day, Lopressor, Imdur -Persistent atrial fibrillation Xarelto. Lopressor -Hyperlipidemia Lipitor -CAD with a history of stent Xarelto. Lopressor, Lipitor Continue Ventolin, Levaquin, other medications. Apply steroids. Oral prednisone. Doing better. Hopefully discharge in 24 hours. Increase activity. Follow-up procalcitonin.
[2022-08-03] MEDS ORDERED: LEVOFLOXACIN 750MG-D5W PMX 750 MG in DEXTROSE/WATER 1 150ML.BAG IVPB SCH (18:00)
[2022-08-03] MEDS: RIVAROXABAN 20 MG TAB PO SCH (20:45)
[2022-08-03] MEDS: ATORVASTATIN 20 MG TAB PO SCH (20:46)
[2022-08-04] MEDS: predniSONE 20 MG TAB PO SCH (07:44)
[2022-08-04] MEDS: ISOSORBIDE MONONITRATE ER 30 MG TAB.ER.24H PO SCH (07:45)
[2022-08-04] MEDS: LORATADINE 10 MG TAB PO SCH (07:45)
[2022-08-04] MEDS: allopurinoL 300 MG TAB PO SCH (07:45)
[2022-08-04] MEDS: amLODIPine 10 MG TAB PO SCH (07:45)
[2022-08-04 08:23] VITALS: BP 168/73; RESP 16; TEMP 98.8
[2022-08-04] MEDS: ALBUTEROL NEBULIZED 2.5 MG/3 ML INHALATION SCH ×2 (09:10→12:49)
[2022-08-04] MEDS: BUDESONIDE 1 MG/2 ML NEBU INHALATION SCH (09:10)
--- NOTE | 2022-08-04 10:49 | P.PN ---
Subjective Progress Note Date: 08/04/22 This is a 7-year-old female patient will go transferred to us from for increased shortness of breath. The patient was having increased dyspnea. For that reason, she initially went in to with her symptoms. She was having symptoms of URI since of 2021 along with some shortness of breath. EKG showed no acute ST segment changes. Chest x-ray showed no acute cardiac pulmonary process. Her proBNP level was 4400 and the troponins were negative. A CT angiogram was done and it showed no evidence of any pulmonary embolism. She had scattered areas of pneumonitis bilaterally in addition to multiple increased densities in the right lower lobe and the right upper lobe of the lung that were new and is obviously raises the concern for malignancy and for that reason the patient got transferred to us for further evaluation and management. I reviewed the CAT scan of the chest and my overall concern for malignancy is quite low in this patient. I do not see solid areas of masses. The nodule described earlier are essentially inflammatory. In addition, there is no evidence of any significant mediastinal lymphadenopathy. There may be some minimal enlargement of the subcarinal lymph nodes. For now, the patient has a WBC count of 7.9 with a hemoglobin 11.4 and a platelet count of 300. Sodium is at 139 and a potassium level is at 3.8 with a BUN of 24 and a creatinine of 0.9. ProBNP level was elevated at 4440. No viral serology has been obtained on this patient. She is currently on Levaquin and Zithromax. She is on prednisone 40 mg by mouth daily. She is already on long-term and coagulation regarding chronic atrial fibrill ation. The patient is known to us. She was last hospitalized back in February 2019 for some chest discomfort. At that time, the patient was treated and she was discharged home. 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 Based on earlier echocardiograms, the patient has a preserved LV function. 08/03/2022, patient remains much improved and she is on room air oxygen. Cough congestion chest tightness and wheezing has subsided significantly. He compla ints otherwise for now. Legionella urine antigen was negative. Her pro calcitonin level is at 0.11. 08/04/2022, no new complaints and the patient is a thoracentesis back to her baseline. No major cough or congestion or wheeze. Objective - Vital Signs Vital signs: Vital Signs Temp 98.8 F 08/04/22 07:13 Pulse 74 08/04/22 09:29 Resp 16 08/04/22 07:13 BP 168/73 08/04/22 07:13 Pulse Ox 97 08/04/22 09:13 FiO2 Intake & Output 08/03/22 08/04/22 08/04/22 18:59 06:59 18:59 Intake Total 1080 Balance 1080 Intake: Oral 1080 Other: Voiding Method Toilet # Voids 3 2 - Exam GENERAL: The patient is alert and oriented x3, not in any acute distress. Well developed, well nourished. Patient is currently on room air oxygen. HEENT: Pupils are round and equally reacting to light. EOMI. No scleral icterus. No conjunctival pallor. Normocephalic, atraumatic. No pharyngeal erythema. No thyromegaly. CARDIOVASCULAR: S1 and S2 present. No murmurs, rubs, or gallops. PULMONARY: Chest is clear to auscultation, no wheezing or crackles. ABDOMEN: Soft, nontender, nondistended, normoactive bowel sounds. No palpable organomegaly. MUSCULOSKELETAL: No joint swelling or deformity. EXTREMITIES: No cyanosis, clubbing, or pedal edema. NEUROLOGICAL: Gross neurological examination did not reveal any focal deficits. SKIN: No rashes. Neurologically, the patient is awake and alert and the patient does not have any focal neurological deficit. Cranial nerves are essentially intact. - Labs CBC & Chem 7: 08/02/22 05:54 08/02/22 05:54 Labs: Microbiology - Last 24 Hours (Table) 08/01/22 15:00 Blood Culture - Preliminary Blood No Growth after 48 hours 08/01/22 15:15 Blood Culture - Preliminary Blood No Growth after 48 hours Assessment and Plan Plan: Atypical pneumonia with symptoms of cough and congestion. I reviewed the CAT scan of the chest and there is some inflammatory opacities bilaterally, tiny, nonspecific finding, unlikely to be malignancy. I favor infection or postinfectious changes. Clinically the patient is improving. The findings are very much consistent with viral pneumonia although the patient had a viral screen that was done and it which included influenza, Covid 19 and RSV and those viruses came back negative. Mycoplasma, Legionella cannot be completely excluded. Noted the patient was treated with Augmentin on outpatient basis. Cough and congestion, improving Coronary artery disease with previous coronary stenting Chronic into fibrillation maintained on long-term and coagulation with Eliquis Hypertension Hyperlipidemia Degenerative arthritis Plan Discharge this patient home today Complete the course of antibiotics and the patient on Levaquin Prednisone burst taper Albuterol HFA I reassured the patient. Clinically the patient is improving. I think she should be able to get discharged home in the next 24 hours. Legionella urine antigen is negative. Pro-calcitonin level is low. Outpatient follow-up
[2022-08-04 12:55] VITALS: PULSE 70
--- NOTE | 2022-08-04 14:01 | P.CRDCN ---
History of Present Illness Consult date: 08/04/22 Consult reason: atrial fibrillation History of present illness: The patient is an 87-year-old female who was transferred from a local hospital for increased shortness of breath. BNP was noted to be elevated as well as computed tomography scan showing scattered areas of pneumonitis and multiple pulmonary densities. She was transferred to [facility] for escalation of care. Cardiology is consulted as she is a patient of Dr. Vann and has a history of atrial fibrillation. The patient states she's been doing well from the cardiac standpoint and has had no issues with her atrial fibrillation. She also denies any chest pain or chest pressure. DIAGNOSTICS: EKG shows rate controlled atrial fibrillation Telemetry shows intrinsic rate control without antiarrhythmics or AV jovan blocking agents Chest x-ray shows chronic changes and cardiomegaly without acute pulmonary process Abdominal ultrasound shows fatty liver, without biliary dilatation or ascites Lab data: WBC 7.9, hemoglobin 11.4, hematocrit 35.0, platelet 300, sodium 139, potassium 3.8, BUN 24, creatinine 0.9 REVIEW OF SYSTEMS: No fever or chills. No cough or expectoration. No diaphoresis. Patient denies headache, dizziness, blurred vision, double vision. No hematochezia. No hematemesis. Denies any black stools or blood in his stools. Denies dysuria or hematuria. No muscle weakness or numbness. Positive for shortness of breath. No chest pain, chest pressure, palpitations PHYSICAL EXAMINATION: This is a 87-year-old female in no apparent distress at the time of my examination. HEENT: Head is atraumatic, normocephalic. Pupils are equal, round. There is no jugular venous distention. No carotid bruit is heard. CHEST EXAMINATION: Lungs are diminished to auscultation. No chest wall tenderness is noted on palpation or with deep breathing. HEART EXAMINATION: Irregular rate and rhythm. S1, S2 heard. ABDOMEN: Soft, nontender. Bowel sounds are heard. No organomegaly noted. EXTREMITIES: 2+ peripheral pulses with no evidence of peripheral edema and no calf tenderness noted. NEUROLOGIC EXAMINATION: Patient is awake, alert and oriented x3. FINAL ASSESSMENT AND PLAN: Persistent atrial fibrillation, on anticoagulation Atypical pneumonia History of coronary artery disease History hypertension History of hyperlipidemia PLAN: No changes to her cardiac medication regimen Continue supportive treatment for pneumonia Outpatient follow-up with primary hvac residential service technician as previously scheduled I am dictating on behalf of Dr Andrea Paez's history/physical and assessm ent/plan. Past Medical History Past Medical History: Atrial Fibrillation, Coronary Artery Disease (CAD), Hyperlipidemia, Hypertension Additional Past Medical History / Comment(s): stent placed 2018 History of Any Multi-Drug Resistant Organisms: None Reported Past Surgical History: Appendectomy, Heart Catheterization With Stent, Hysterectomy Date of Last Stent Placement:: 5 years ago Past Psychological History: No Psychological Hx Reported Smoking Status: Never smoker Past Alcohol Use History: Occasional Past Drug Use History: None Reported Medications and Allergies Home Medications Medication Instructions Recorded Confirmed Type Atorvastatin Calcium [Lipitor] 20 mg PO HS 03/27/19 08/01/22 History Isosorbide Mononitrate ER [Imdur] 30 mg PO DAILY 03/27/19 08/01/22 History allopurinoL [Zyloprim] 300 mg PO DAILY 03/27/19 08/01/22 History amLODIPine [Norvasc] 10 mg PO DAILY 03/27/19 08/01/22 History Rivaroxaban [Xarelto] 20 mg PO HS 08/01/22 08/01/22 History Albuterol Sulfate [Ventolin HFA] 1 - 2 puff INHALATION Q6H PRN #1 08/04/22 Rx each Levofloxacin [Levaquin] 500 mg PO DAILY #3 tab 08/04/22 Rx Lisinopril-Hctz 10-12.5 mg 1 tab PO HS #30 tab 08/04/22 Rx [Zestoretic 10-12.5] Loratadine [Claritin] 5 mg PO Q12HR tab 08/04/22 Rx predniSONE 10 mg PO DAILY #30 tab 08/04/22 Rx Allergies Allergy/AdvReac Type Severity Reaction Status Date / Time No Known Allergies Allergy Verified 03/27/19 21:10 Physical Exam Vitals: Vital Signs Temp Pulse Pulse Resp BP Pulse Ox 08/04/22 09:29 74 08/04/22 09:13 70 97 08/04/22 07:13 98.8 F 65 16 168/73 97 08/04/22 00:53 98.4 F 63 17 147/71 97 08/03/22 21:07 64 08/03/22 19:04 97.5 F L 79 17 151/72 97 08/03/22 15:42 62 01/07/23 15:30 68 08/03/22 14:11 97.8 F 81 18 146/65 96 08/03/22 11:49 62 08/03/22 11:41 66 Intake and Output 08/03/22 08/04/22 08/04/22 22:59 06:59 14:59 Intake Total 1080 Balance 1080 Intake: Oral 1080 Other: Voiding Method Toilet # Voids 3 2 Results 08/02/22 05:54 08/02/22 05:54 Current Medications Generic Name Dose Route Start Last Admin Trade Name Freq PRN Reason Stop Dose Admin Albuterol Sulfate 2.5 mg 08/02/22 10:37 08/04/22 09:10 Albuterol Nebulized 2.5 Mg/3 Ml INHALATION 2.5 mg RT-QID [facility] Administration Allopurinol 300 mg 08/02/22 09:00 08/04/22 07:45 Allopurinol 300 Mg Tab PO 300 mg DAILY [facility] Administration Amlodipine Besylate 10 mg 08/02/22 09:00 08/04/22 07:45 Amlodipine 10 Mg Tab PO 10 mg DAILY [facility] Administration Atorvastatin Calcium 20 mg 08/01/22 21:00 08/03/22 20:46 Atorvastatin 20 Mg Tab PO 20 mg HS [facility] Administration Budesonide 1 mg 08/02/22 10:38 08/04/22 09:10 Budesonide 1 Mg/2 Ml Nebu INHALATION 1 mg RT-BID [facility] Administration Levofloxacin 750 mg/ IV 150 mls @ 100 mls/hr 08/03/22 18:00 08/03/22 17:25 Solution IVPB 100 mls/hr Q48H [facility] Administration Protocol Isosorbide Mononitrate 30 mg 08/02/22 09:00 08/04/22 07:45 Isosorbide Mononitrate Er 30 Mg Tab.Er.24h PO 30 mg DAILY [facility] Administration Loratadine 5 mg 08/02/22 10:45 08/04/22 07:45 Loratadine 10 Mg Tab PO 5 mg Q12HR [facility] Administration Naloxone HCl 0.2 mg 08/01/22 17:27 Naloxone 0.4 Mg/Ml 1 Ml Vial IV Q2M PRN Opioid Reversal Prednisone 40 mg 08/02/22 10:45 08/04/22 07:44 Prednisone 20 Mg Tab PO 40 mg DAILY [facility] Administration Rivaroxaban 20 mg 08/01/22 21:00 08/03/22 20:45 Rivaroxaban 20 Mg Tab PO 20 mg HS [facility] Administration Protocol Intake and Output 08/03/22 08/04/22 08/04/22 22:59 06:59 14:59 Intake Total 1080 Balance 1080 Intake: Oral 1080 Other: Voiding Method Toilet # Voids 3 2 08/02/22 05:54 08/02/22 05:54
--- NOTE | 2022-08-04 19:24 | P.DS ---
Providers Date of admission: 08/01/22 17:27 Expected date of discharge: 08/04/22 Attending physician: Baljeet Vail Consults: 08/01/22 17:27 Consult Physician Routine Consulting Provider: Tatiana Rowland Consult Reason/Comments: pneumonia, worsening dyspnea, concern for lung cancer Do you want consulting provider notified?: Yes 08/02/22 10:17 Consult Physician Routine Consulting Provider: Wang Chicas Consult Reason/Comments: low heart rate, known pt Do you want consulting provider notified?: Yes Primary care physician: [facility] Course: Chief Complaint: Short of breath This is a pleasant 87-year-old patient who follows Dr. Bernardo. I saw this patient in ER room 10 when patient's chart was not ready. Patient is accompanied by her daughterdedrick. Chronic stable medical conditions include atrial fibrillation, CAD with stent, hypertension, hyperlipidemia. Patient presents stating that she has been short of breath on and off for about a year. With a week ago she started becoming increasingly short of breath had a sore throat fever no cough felt like strep throat. Also had a fever up to 101. Decreased appetite. No change in bowel pattern. Subsequently patient presented to [facility] fluid overload was given some Lasix. Transferred here. Patient is a bit stuffy and congested. Having some phlegm that is coffee colored. Tired. 08/02/2022: Some nasal congestion some wheezing and cough. Claritin added. On albuterol. Eating some. On Levaquin. Tired 08/03/2022: Breathing better. Decreased congestion. Some improvement in appetite. Encouraged to ambulate. On Levaquin. Increase activity. 08/04/2022: Feeling better. Oral intake better. Discussed with patient. Completed a short course of Levaquin as per pulmonary. Questions answered. Discussion and discharge planning more than 35 minutes Past medical history to include: Atrial fibrillation, CAD with stent, hypertension, hyperlipidemia, Social history: Nonsmoker. Alcohol occasionally. Lives with her . Physical examination: VITAL SIGNS: 98.8, 65, 16, 160/73, 97% room air GENERAL: Sitting up comfortable EYES: Pupils equal. Conjunctiva normal. HEENT: External appearance of nose and ears normal, oral cavity grossly normal. NECK: JVD not raised; masses not palpable. HEART: First and second heart sounds are normal; no edema. LUNGS: Respiratory rate normal; decreased breath sound ABDOMEN: Soft, nontender, liver spleen not palpable, no masses palpable. PSYCH: Alert and oriented x3; mood and affect anxious. MUSCULOSKELETAL:No Clubbing/cyanosis;muscles-grossly intact. OA INVESTIGATIONS, reviewed in the clinical context: 08/04/2022: Procalcitonin 0.05 Urine Legionella antigen: Negative 08/02/2022: White count 7.9 hemoglobin 11.4 percussion 3.8 creatinine 0.9 White count 8.8 hemoglobin 11.4 platelets 288 ProTime 12.4 sodium 136 potassium 4.2 creatinine 0.7 to AST 106 ALT 98 proBNP 4440 Troponin I less than 0.012 EKG tracing personally reviewed by me-atrial flutter fibrillation with a rate of 110 Assessment and plan: -Probable acute viral pneumonitis. With secondary gram-negative secondary organism. Pneumonia Levaquin 5 mg a day for 3 more days -Secondary bronchospasm Ventolin. Prednisone taper -Hyperuricemia Allopurinol 300 mg a day -Essential hypertension Amlodipine 10 mg a day, Lopressor, Imdur -Persistent atrial fibrillation Xarelto. Lopressor -Hyperlipidemia Lipitor -CAD with a history of stent Xarelto. Lopressor, Lipitor Disposition: Home Patient Condition at Discharge: Stable Plan - Discharge Summary Discharge Rx Participant: Yes New Discharge Prescriptions: New Loratadine [Claritin] 5 mg PO Q12HR tab Levofloxacin [Levaquin] 500 mg PO DAILY #3 tab Albuterol Sulfate [Ventolin HFA] 1 - 2 puff INHALATION Q6H PRN #1 each PRN Reason: Wheezing Lisinopril-Hctz 10-12.5 mg [Zestoretic 10-12.5] 1 tab PO HS #30 tab predniSONE 10 mg PO DAILY #30 tab Continue amLODIPine [Norvasc] 10 mg PO DAILY Isosorbide Mononitrate ER [Imdur] 30 mg PO DAILY Atorvastatin Calcium [Lipitor] 20 mg PO HS allopurinoL [Zyloprim] 300 mg PO DAILY Rivaroxaban [Xarelto] 20 mg PO HS Discontinued Metoprolol Tartrate [Lopressor] 25 mg PO DAILY #30 tab predniSONE [Deltasone] 20 mg PO BID Amoxic-Pot Clav 875-125Mg [Augmentin 875-125] 1 tab PO BID Discharge Medication List Atorvastatin Calcium [Lipitor] 20 mg PO HS 03/27/19 [History] Isosorbide Mononitrate ER [Imdur] 30 mg PO DAILY 03/27/19 [History] allopurinoL [Zyloprim] 300 mg PO DAILY 03/27/19 [History] amLODIPine [Norvasc] 10 mg PO DAILY 03/27/19 [History] Rivaroxaban [Xarelto] 20 mg PO HS 08/01/22 [History] Albuterol Sulfate [Ventolin HFA] 1 - 2 puff INHALATION Q6H PRN #1 each 08/04/22 [Rx] Levofloxacin [Levaquin] 500 mg PO DAILY #3 tab 08/04/22 [Rx] Lisinopril-Hctz 10-12.5 mg [Zestoretic 10-12.5] 1 tab PO HS #30 tab 08/04/22 [Rx] Loratadine [Claritin] 5 mg PO Q12HR tab 08/04/22 [Rx] predniSONE 10 mg PO DAILY #30 tab 08/04/22 [Rx] Follow up Appointment(s)/Referral(s): Ruth Ann Lopez NPC [REFERRING] - 1 Week Tatiana Rowland MD [STAFF PHYSICIAN] - 1 Week Patient Instructions/Handouts: Community Acquired Pneumonia (DC) Discharge Disposition: HOME SELF-CARE
[2022-08-05 03:22] LABS: Mycoplasma IgG Antibody (EIA) 3.09 INDEX (<=0.90); Mycoplasma IgM Antibody 0.04 INDEX (<=0.90)
== END 2022-08-04 14:31 | disposition home or self-care (01) | DRG 194 ==
LOC: EC 14:02 → 5NMEDONC 17:27 → 4SSUR 18:33
PROVIDERS: ADMIT Hospitalist; ATTEND Hospitalist
DX: J12.9 Viral pneumonia, unspecified (principal); I48.19 Other persistent atrial fibrillation; J15.6 Pneumonia due to other Gram-negative bacteria; K76.0 Fatty (change of) liver, not elsewhere classified; I51.3 Intracardiac thrombosis, not elsewhere classified; J98.01 Acute bronchospasm; I10 Essential (primary) hypertension; I35.1 Nonrheumatic aortic (valve) insufficiency; E78.5 Hyperlipidemia, unspecified; I25.10 Atherosclerotic heart disease of native coronary artery without angina pectoris; E79.0 Hyperuricemia without signs of inflammatory arthritis and tophaceous disease; M19.90 Unspecified osteoarthritis, unspecified site; Z79.51 Long term (current) use of inhaled steroids; Z79.01 Long term (current) use of anticoagulants; Z79.899 Other long term (current) drug therapy; Z95.5 Presence of coronary angioplasty implant and graft
CPT/HCPCS: 36415; 71045; 71046; 76705; 80048; 80053; 83735; 83880; 84145; 84484; 85025; 85610; 85730; 86738; 87040; 87449; 93005; 94640; 94760; 96365; 96366; 96367; 99285

== ENCOUNTER 2023-04-29 14:09 | Inpatient (IN) | payer MEDICARE, OTHER ==
--- NOTE | 2023-04-29 14:19 | ED ---
General Adult HPI - General Stated complaint: chest pain Time Seen by Provider: 04/29/23 14:10 Source: patient, RN notes reviewed, old records reviewed - History of Present Illness Initial comments: This is an 87-year-old female who is transferred to us from [facility]. Patient came in to [facility] with chest pain radiating down her left arm. Patient states his been ongoing for 2 days. Patient was given Nitropaste and eventually placed on a nitro drip. Patient is a HEPARIN WAS NOT STARTED. HE HAS A PREVIOUS HEART HISTORY AND HAS HAD A HEART ATTACK IN THE PAST. Patient has had no fever chills or cough. Patient denies any back pain. Patient states she is a little bit short of breath. Patient denies any nausea or vomiting. Patient denies any abdominal pain. Patient denies lightheadedness or dizziness. Patient states that the nitroglycerin seems to help. - Related Data Home Medications Medication Instructions Recorded Confirmed Atorvastatin Calcium [Lipitor] 20 mg PO HS 03/27/19 08/01/22 Isosorbide Mononitrate ER [Imdur] 30 mg PO DAILY 03/27/19 08/01/22 allopurinoL [Zyloprim] 300 mg PO DAILY 03/27/19 08/01/22 amLODIPine [Norvasc] 10 mg PO DAILY 03/27/19 08/01/22 Rivaroxaban [Xarelto] 20 mg PO HS 08/01/22 08/01/22 Previous Rx's Medication Instructions Recorded Albuterol Sulfate [Ventolin HFA] 1 - 2 puff INHALATION Q6H PRN #1 08/04/22 each Levofloxacin [Levaquin] 500 mg PO DAILY #3 tab 08/04/22 Lisinopril-Hctz 10-12.5 mg 1 tab PO HS #30 tab 08/04/22 [Zestoretic 10-12.5] Loratadine [Claritin] 5 mg PO Q12HR tab 08/04/22 predniSONE 10 mg PO DAILY #30 tab 08/04/22 Allergies Allergy/AdvReac Type Severity Reaction Status Date / Time No Known Allergies Allergy Verified 04/29/23 14:26 Review of Systems ROS Statement: Those systems with pertinent positive or pertinent negative responses have been documented in the HPI. ROS Other: All systems not noted in ROS Statement are negative. Past Medical History Past Medical History: Atrial Fibrillation, Coronary Artery Disease (CAD), Hyperlipidemia, Hypertension Additional Past Medical History / Comment(s): stent placed 2018 History of Any Multi-Drug Resistant Organisms: None Reported Past Surgical History: Appendectomy, Heart Catheterization With Stent, Hysterectomy Date of Last Stent Placement:: 5 years ago Past Psychological History: No Psychological Hx Reported Smoking Status: Never smoker Past Alcohol Use History: Occasional Past Drug Use History: None Reported General Exam - General Exam Comments Initial Comments: GENERAL: Patient is well-developed and well-nourished. Patient is nontoxic and well- hydrated and is in mild distress. ENT: Neck is soft and supple. No significant lymphadenopathy is noted. Oropharynx is clear. Moist mucous membranes. Neck has full range of motion without eliciting any pain. EYES: The sclera were anicteric and conjunctiva were pink and moist. Extraocular movements were intact and pupils were equal round and reactive to light. Eyelids were unremarkable. PULMONARY: Unlabored respirations. Good breath sounds bilaterally. No audible rales rhonchi or wheezing was noted. CARDIOVASCULAR: There is a regular rate and rhythm without any murmurs gallops or rubs. ABDOMEN: Soft and nontender with normal bowel sounds. SKIN: Skin is clear with no lesions or rashes and otherwise unremarkable. NEUROLOGIC: Patient is alert and oriented x3. Cranial nerves II through XII are grossly intact. Motor and sensory are also intact. Normal speech, volume and content. Symmetrical smile. MUSCULOSKELETAL: Normal extremities with adequate strength and full range of motion. LYMPHATICS: No significant lymphadenopathy is noted PSYCHIATRIC: Normal psychiatric evaluation. Course Vital Signs 04/29/23 14:16 Temperature 97.0 F L Pulse Rate 63 Respiratory 20 Rate Blood Pressure 193/84 O2 Sat by Pulse 99 Oximetry Medical Decision Making - Medical Decision Making EKG is interpreted by myself. EKG shows a sinus rhythm at 63 bpm MO interval 220 QRS is 90 QT interval 443 QTC is 450. Patient's EKG shows no ST segment elevation or depression. Was pt. sent in by a medical professional or institution (, PA, SECOND HAND PAPER MACHINE, urgent care, hospital, or fdc...) When possible be specific @ -Patient was transferred to us from [facility] Did you speak to anyone other than the patient for history (EMS, parent, family, police, friend...)? What history was obtained from this source @ -Spoke with the ER doc [facility] prior to the patient's transfer Did you review nursing and triage notes (agree or disagree)? Why? @ -I reviewed and agree with nursing and triage notes Were old charts reviewed (outside hosp., previous admission, EMS record, old EKG, old radiological studies, urgent care reports/EKG's, fdc records)? Report findings @ -I reviewed all the lab work and charts that the patient came with as well as previous charts on the patient Differential Diagnosis (chest pain, altered mental status, abdominal pain women, abdominal pain men, vaginal bleeding, weakness, fever, dyspnea, syncope, headache, dizziness, GI bleed, back pain, seizure, CVA, palpatations, mental health, musculoskeletal)? @ -Differential Chest Pain: Stable Angina, Unstable Angina, STEMI, NSTEMI Aortic Dissection, Pneumothorax, Musculoskeletal, Esophageal Spasm GERD, Cholecystitis, Pancreatitis, Zoster, this is not meant to be an all-inclusive list. EKG interpreted by me (3pts min.). @ -As above X-rays interpreted by me (1pt min.). @ -None done CT interpreted by me (1pt min.). @ -None done U/S interpreted by me (1pt. min.). @ -None done What testing was considered but not performed or refused? (CT, X-rays, U/S, labs)? Why? @ -None What meds were considered but not given or refused? Why? @ -None Did you discuss the management of the patient with other professionals (professionals i.e. , PA, SECOND HAND PAPER MACHINE, lab, RT, psych nurse, social work associate, gre tutor, teacher, security vehicle patrol officer, pillowcase sewer)? Give summary @ -With Dr. Vail he agreed to admit the patient admitted the patient wrote admitting orders Was smoking cessation discussed for >3mins.? @ -No Was critical care preformed (if so, how long)? @ -No Were there social determinants of health that impacted care today? How? (Home lessness, low income, unemployed, alcoholism, drug addiction, transportation, low edu. Level, literacy, decrease access to med. care, penitentiary, rehab)? @ -No Was there de-escalation of care discussed even if they declined (Discuss DNR or withdrawal of care, Hospice)? DNR status @ -No What co-morbidities impacted this encounter? (DM, HTN, Smoking, COPD, CAD, Cancer, CVA, ARF, Chemo, Hep., AIDS, mental health diagnosis, sleep apnea, morbid obesity)? @ -None Was patient admitted / discharged? Hospital course, mention meds given and route, prescriptions, significant lab abnormalities, going to OR and other pertinent info. @ -KG showed no acute abnormality here and I spoke with Dr. Vail agreed to admit the patient I admitted the patient I did consult cardiology Undiagnosed new problem with uncertain prognosis? @ -No Drug Therapy requiring intensive monitoring for toxicity (Heparin, Nitro, Insulin, Cardizem)? @ -No Were any procedures done? @ -No Diagnosis/symptom? @ -Chest pain Acute, or Chronic, or Acute on Chronic? @ -Acute Uncomplicated (without systemic symptoms) or Complicated (systemic symptoms)? @ -Complicated Side effects of treatment? @ -No Exacerbation, Progression, or Severe Exacerbation? @ -No Poses a threat to life or bodily function? How? (Chest pain, [place], [place], pneumonia, PE, COPD, DKA, ARF, appy, cholecystitis, CVA, Diverticulitis, Homicidal, Suicidal, threat to staff... and all critical care pts) @ -This could lead to an [place] poor perfusion and end organ dysfunction Disposition Clinical Impression: Chest pain Disposition: ADMITTED IP TO THIS HOSP Referrals: Wesltey Bernardo MD [Primary Care Provider] - 1-2 days Time of Disposition: 14:57
[2023-04-29] MEDS ORDERED: NITROGLYCERIN SL TABS 0.4 MG TAB SUBLINGUAL PRN (14:57)
[2023-04-29] MEDS ORDERED: HEPARIN SODIUM 1,000 UN/ML (10ML VL) IV PRN (18:20)
[2023-04-29] MEDS ORDERED: HEPARIN SOD,PORK IN 0.45% NACL 25,000 UNIT in 0.45% NACL 1 250ML.BAG IV SCH (18:30)
[2023-04-29] MEDS: NITROGLYCERIN OINT 1 INCH/GM PACKET TOPICAL SCH ×2 (19:06→23:04)
[2023-04-29] MEDS: LISINOPRIL-HCTZ 10-12.5 MG 1 EACH TAB PO SCH (20:28)
[2023-04-29] MEDS ORDERED: ATORVASTATIN 20 MG TAB PO SCH (21:00)
[2023-04-29] MEDS ORDERED: RIVAROXABAN 20 MG TAB PO SCH (21:00)
--- NOTE | 2023-04-29 22:06 | P.HPIM ---
History of Present Illness H&P Date: 04/29/23 Chief Complaint: Chest pain This is a pleasant 87-year-old patient who follows Dr. Bernardo. Patient is known history of CAD with stent in around 2018. About a year ago patient underwent stress test by Dr. Vann that was apparently negative. For last 2-3 days patient has been not feeling well. Having intermittent chest discomfort. His morning patient developed more prominent chest discomfort anteriorly going down the left arm to her hands. Has been intermittently short of breath perspiring. Also became lightheaded. Pain is not worse with activity. Patient presented to [facility]. EKG showed nonspecific findings troponin I was 0.055. Decided to come in here. Review of systems: GEN.: Tired EYES: None HEENT: None NECK: None RESPIRATORY: As above CARDIOVASCULAR: As above GASTROINTESTINAL: None GENITOURINARY: None MUSCULOSKELETAL: Joint pain LYMPHATICS: None HEMATOLOGICAL: None PSYCHIATRY: None NEUROLOGICAL: None Past medical history to include: Atrial fibrillation, CAD with stent, hypertension, hyperlipidemia, Social history: Nonsmoker. Alcohol occasionally. Lives with her . Physical examination: VITAL SIGNS: 97.7, 67, 18, 149/71, 98% room air GENERAL: BMI 27.5, laying in bed awake comfortable EYES: Pupils equal. Conjunctiva normal. HEENT: External appearance of nose and ears normal, oral cavity grossly normal. NECK: JVD not raised; masses not palpable. HEART: First and second heart sounds are normal; no edema. LUNGS: Respiratory rate increased; mild wheezing and slight crackle. ABDOMEN: Soft, nontender, liver spleen not palpable, no masses palpable. PSYCH: Alert and oriented x3; mood and affect anxiousl. MUSCULOSKELETAL:No Clubbing/cyanosis;muscles-grossly intact. OA NEUROLOGICAL: Cranial nerves grossly intact; no facial asymmetry, power and sensation grossly intact. LYMPHATICS: No lymph nodes palpable in the axilla and neck INVESTIGATIONS, reviewed in the clinical context: April 29: 0.059, 0.053 From [facility]: 0.055. Labs reviewed from [facility]. EKG tracing personally reviewed by me-normal sinus rhythm. Nonspecific T-wave changes. Assessment and plan: -Probable unstable angina in a patient known CAD. Last stress test was about a year ago. Troponin mildly positive. IV heparin. Aspirin. -IV heparin monitoring -Secondary bronchospasm Ventolin. Prednisone taper -Hyperuricemia Allopurinol 300 mg a day -Essential hypertension Zestoretic Lopressor, Imdur -Paroxysmal atrial fibrillation, currently sinus rhythm Xarelto. Lopressor -Hyperlipidemia Lipitor -CAD with a history of stent Aspirin Lopressor, Lipitor Discussed with patient. Questions answered. Cardiology consulted. Past Medical History Past Medical History: Atrial Fibrillation, Coronary Artery Disease (CAD), Hyperlipidemia, Hypertension Additional Past Medical History / Comment(s): stent placed 2017 History of Any Multi-Drug Resistant Organisms: None Reported Past Surgical History: Appendectomy, Heart Catheterization With Stent, Hysterectomy Date of Last Stent Placement:: 5 years ago Past Psychological History: No Psychological Hx Reported Smoking Status: Never smoker Past Alcohol Use History: Occasional Past Drug Use History: None Reported Medications and Allergies Home Medications Medication Instructions Recorded Confirmed Type Atorvastatin Calcium [Lipitor] 20 mg PO HS 03/27/19 04/29/23 History Isosorbide Mononitrate ER [Imdur] 30 mg PO DAILY 03/27/19 04/29/23 History allopurinoL [Zyloprim] 300 mg PO DAILY 03/27/19 04/29/23 History Rivaroxaban [Xarelto] 20 mg PO HS 08/01/22 04/29/23 History Lisinopril-Hctz 10-12.5 mg 1 tab PO HS #30 tab 08/04/22 04/29/23 Rx [Zestoretic 10-12.5] Furosemide [Lasix] 20 mg PO HS 04/29/23 04/29/23 History Allergies Allergy/AdvReac Type Severity Reaction Status Date / Time No Known Allergies Allergy Verified 04/29/23 16:06 Physical Exam Vitals: Vital Signs Temp Pulse Pulse Resp BP BP Pulse Ox 04/29/23 20:00 60 16 149/71 98 04/29/23 18:02 97.7 F 67 18 177/71 96 04/29/23 17:07 54 L 20 176/67 97 04/29/23 16:26 58 L 20 162/81 99 04/29/23 15:30 57 L 20 142/74 99 04/29/23 14:16 97.0 F L 63 20 193/84 99 Intake and Output 04/29/23 04/29/23 04/29/23 06:59 14:59 22:59 Intake Total 120 Balance 120 Intake: Oral 120 Other: Weight 74.843 kg 74.843 kg Results Labs: Abnormal Lab Results - Last 24 Hours (Table) 04/29/23 04/29/23 Range/Units 14:21 18:26 Troponin I 0.059 H* 0.053 H* (0.000-0.034) ng/mL Thrombosis Risk Factor Assmnt - Choose All That Apply Any of the Below Risk Factors Present?: Yes Each Factor Represents 1 point: Obesity (BMI >25) Each Risk Factor Represents 3 Points: Age 75 years or older Thrombosis Risk Factor Assessment Total Risk Factor Score: 4 Thrombosis Risk Factor Assessment Level: Moderate Risk
[2023-04-30] MEDS: NITROGLYCERIN OINT 1 INCH/GM PACKET TOPICAL SCH (05:19)
[2023-04-30 07:30] LABS: Basophils # (A) 0.1 k/uL (0-0.2); Basophils % (A) 1 %; Eosinophils # (A) 0.1 k/uL (0-0.7); Eosinophils % (A) 2 %; HCT 32.3 % (34.0-46.0); HGB 10.8 gm/dL (11.4-16.0); Lymphocytes % (A) 18 %; MCH 32.4 pg (25.0-35.0); MCHC 33.3 g/dL (31.0-37.0); MCV 97.5 fL (80.0-100.0); Mean Platelet Volume 10.2; Monocytes # (A) 0.6 k/uL (0-1.0); Monocytes % (A) 11 %; Neutrophils # (A) 3.8 k/uL (1.3-7.7); Neutrophils % (A) 65 %; Platelet Count 208 k/uL (150-450); RBC 3.31 m/uL (3.80-5.40); RDW 14.7 % (11.5-15.5); WBC 5.9 k/uL (3.8-10.6)
--- NOTE | 2023-04-30 08:38 | XR ---
EXAMINATION TYPE: XR chest 2V DATE OF EXAM: 04/30/2023 COMPARISON: 08/03/2022 TECHNIQUE: PA and lateral views submitted. HISTORY: Chest pain FINDINGS: The lungs are clear and there is no pneumothorax, pleural effusion, or focal pneumonia. Heart size normal and no overt failure. Osseous structures demonstrate hypertrophic and degenerative changes of the spine. Atherosclerotic change of aorta. Diffuse osteopenia with arthropathy of the shoulders. Naomy pical pleural thickening. Chronic right-sided rib deformities. IMPRESSION: 1. No acute process. 2. Diffuse COPD.
[2023-04-30] MEDS: allopurinoL 300 MG TAB PO SCH (08:48)
[2023-04-30] MEDS ORDERED: NITROGLYCERIN SL TABS 0.4 MG TAB SUBLINGUAL PRN (08:50)
[2023-04-30] MEDS ORDERED: ALPRAZolam 0.5 MG TAB PO PRN (08:50)
[2023-04-30] MEDS ORDERED: ASPIRIN 325 MG TAB PO STA (08:50)
[2023-04-30] MEDS ORDERED: ATORVASTATIN 80 MG TAB PO STA (08:50)
[2023-04-30] MEDS ORDERED: ALPRAZolam 0.25 MG TAB PO PRN (08:50)
[2023-04-30] MEDS ORDERED: ISOSORBIDE MONONITRATE ER 30 MG TAB.ER.24H PO SCH ×2 (09:00→11:45)
[2023-04-30] MEDS ORDERED: ASPIRIN 325 MG TAB PO SCH (09:00)
[2023-04-30] MEDS ORDERED: NITROGLYCERIN-D5W PMX 50 MG in DEXTROSE/WATER 1 250ML.BAG IV SCH (09:00)
[2023-04-30] MEDS: ASPIRIN 81 MG PO SCH (09:21)
[2023-04-30] MEDS: SODIUM CHLORIDE 0.9% 1,000 ML in EMPTY BAG 1 BAG IV SCH ×2 (09:35→21:11)
[2023-04-30 09:40] LABS: African American GFR (CKD) 47 (>60 ml/min/1.73 sqM); Anion Gap 10 mmol/L; Blood Urea Nitrogen 44 mg/dL (7-17); Calcium 10.4 mg/dL (8.4-10.2); Carbon Dioxide 24 mmol/L (22-30); Chloride 105 mmol/L (98-107); Glucose 114 mg/dL (74-99); Non-African American GFR(CKD) 41 (>60 ml/min/1.73 sqM); Potassium 5.3 mmol/L (3.5-5.1); Sodium 139 mmol/L (137-145)
--- NOTE | 2023-04-30 10:06 | P.CRDCN ---
History of Present Illness History of present illness: HISTORY OF PRESENT ILLNESS: This is a 87-year-old female with a past medical history significant for paroxysmal atrial fibrillation, coronary artery disease with previous stenting of the LAD, valvular heart disease, hypertension, and hyperlipidemia. Patient follows in the office with Dr. Chicas. We have been asked to see the patient in consultation for chest pain. Patient examined at the bedside. Patient states she has been having chest pain for the past 2 days. She states it is becoming more constant over the past 24 hours. She states it feels like a pressure type sensation. She states that pain went down her left arm and her left arm feels heavy this morning. She continues to report mild chest discomfort this morning and is rating it 2/10. She is currently on IV heparin. * EKG reveals sinus mechanism with nonspecific ST-T wave changes * Chest xray negative for acute process * Laboratory data: WBC 5.9. Hemoglobin 10.8. Platelet count 208. Sodium 139. Potassium 5.3. BUN 44. Creatinine 1.20. Troponin 0.059. 0.053. 0.048. * Current home cardiac medications include Lipitor 20 mg at night, Lasix 20 g at night, isosorbide 30 mg daily, Xarelto 20 mg at night, and lisinopril- hydrochlorothiazide 10-12.5mg at night * Most recent echocardiogram obtained in October 2022 revealed ejection fraction 55%, moderate aortic regurgitation, moderate tricuspid regurgitation * Patient underwent Lexiscan stress test in June 2021 which was negative for ischemia * Cardiac catheterization history: April 2012 revealing patent stent in the LAD REVIEW OF SYSTEMS: At the time of my exam: CONSTITUTIONAL: Denies fever or chills. HEENT: Denies blurred vision, vision changes, or eye pain. Denies hemoptysis CARDIOVASCULAR: Denies chest pain. Denies orthopnea. Denies PND. Denies palpitations RESPIRATORY: Denies shortness of breath. GASTROINTESTINAL: Denies abdominal pain. Denies nausea or vomiting. HEMATOLOGIC: Denies bleeding disorders. GENITOURINARY: Denies any blood in urine. SKIN: Denies pruitis. Denies rash. PHYSICAL EXAM: VITAL SIGNS: Reviewed. GENERAL: Well-developed in no acute distress. HEENT: Head is normocephalic. Pupils are equal, round. Sclerae anicteric. Mucous membranes of the mouth are moist. Neck supple. No JVD or thyromegaly LUNGS: Respirations even and unlabored. Lungs essentially clear to auscultation bilaterally. HEART: Regular rate and rhythm. S1 and S2 heard. ABDOMEN: Soft. Nondistended. Nontender. EXTREMITIES: Normal range of motion. No clubbing or cyanosis. Peripheral pulses intact. No lower extremity edema NEUROLOGIC: Awake and alert. Oriented x 3. ASSESSMENT: Unstable angina Coronary artery disease with previous stenting of the LAD Paroxysmal atrial fibrillation Valvular heart disease Hypertension Hyperlipidemia PLAN: Obtain 2-D echo to assess cardiac structure and function Continue IV heparin Begin IV nitro Resume home cardiac medications Patient to undergo cardiac catheterization today with Dr. Chicas Further recommendations pending patient's course Nurse practitioner note has been reviewed by physician. Signing provider agrees with the documented findings, assessment, and plan of care. Past Medical History Past Medical History: Atrial Fibrillation, Coronary Artery Disease (CAD), Hyperlipidemia, Hypertension Additional Past Medical History / Comment(s): stent placed 2017 History of Any Multi-Drug Resistant Organisms: None Reported Past Surgical History: Appendectomy, Heart Catheterization With Stent, Hysterectomy Date of Last Stent Placement:: 5 years ago Past Psychological History: No Psychological Hx Reported Smoking Status: Never smoker Past Alcohol Use History: Occasional Past Drug Use History: None Reported Medications and Allergies Home Medications Medication Instructions Recorded Confirmed Type Atorvastatin Calcium [Lipitor] 20 mg PO HS 03/27/19 04/29/23 History Isosorbide Mononitrate ER [Imdur] 30 mg PO DAILY 03/27/19 04/29/23 History allopurinoL [Zyloprim] 300 mg PO DAILY 03/27/19 04/29/23 History Rivaroxaban [Xarelto] 20 mg PO HS 08/01/22 04/29/23 History Lisinopril-Hctz 10-12.5 mg 1 tab PO HS #30 tab 08/04/22 04/29/23 Rx [Zestoretic 10-12.5] Furosemide [Lasix] 20 mg PO HS 04/29/23 04/29/23 History Allergies Allergy/AdvReac Type Severity Reaction Status Date / Time No Known Allergies Allergy Verified 04/29/23 16:06 Physical Exam Vitals: Vital Signs Temp Pulse Pulse Resp BP BP Pulse Ox 04/30/23 04:00 50 L 18 170/70 100 04/29/23 23:21 57 L 16 152/70 97 04/29/23 20:00 60 16 149/71 98 04/29/23 18:02 97.7 F 67 18 177/71 96 04/29/23 17:07 54 L 20 176/67 97 04/29/23 16:26 58 L 20 162/81 99 04/29/23 15:30 57 L 20 142/74 99 04/29/23 14:16 97.0 F L 63 20 193/84 99 Intake and Output 04/29/23 04/30/23 04/30/23 22:59 06:59 14:59 Intake Total 120 Balance 120 Intake: Oral 120 Other: # Voids 2 Weight 74.843 kg Results 04/30/23 07:06 04/30/23 07:06 Cardiac Enzymes 04/29/23 04/29/23 04/29/23 Range/Units 14:21 18:26 21:55 Troponin I 0.059 H* 0.053 H* 0.048 H* (0.000-0.034) ng/mL Coagulation 04/30/23 04/30/23 Range/Units 00:00 07:06 APTT 50.2 H 59.6 H (22.0-30.0) sec CBC 04/30/23 Range/Units 07:06 WBC 5.9 (3.8-10.6) k/uL RBC 3.31 L (3.80-5.40) m/uL Hgb 10.8 L (11.4-16.0) gm/dL Hct 32.3 L (34.0-46.0) % Plt Count 208 (150-450) k/uL Comprehensive Metabolic Panel 04/30/23 Range/Units 07:06 Sodium 139 (137-145) mmol/L Potassium 5.3 H (3.5-5.1) mmol/L Chloride 105 (98-107) mmol/L Carbon Dioxide 24 (22-30) mmol/L BUN 44 H (7-17) mg/dL Creatinine 1.20 H (0.52-1.04) mg/dL Glucose 114 H (74-99) mg/dL Calcium 10.4 H (8.4-10.2) mg/dL Current Medications Generic Name Dose Route Start Last Admin Trade Name Freq PRN Reason Stop Dose Admin Allopurinol 300 mg 04/30/23 09:00 04/30/23 08:48 Allopurinol 300 Mg Tab PO 300 mg DAILY CARRI Administration Alprazolam 0.25 mg 04/30/23 08:50 Alprazolam 0.25 Mg Tab PO Q6HR PRN Mild Anxiety Alprazolam 0.5 mg 04/30/23 08:50 Alprazolam 0.5 Mg Tab PO Q6HR PRN Moderate Anxiety Aspirin 81 mg 04/30/23 09:00 04/30/23 09:21 Aspirin 81 Mg PO Not Given DAILY CARRI Atorvastatin Calcium 20 mg 04/29/23 21:00 04/29/23 20:28 Atorvastatin 20 Mg Tab PO 20 mg HS CARRI Administration Lisinopril/HCTZ 1 each 04/29/23 21:00 04/29/23 20:28 Lisinopril-Hctz 10-12.5 Mg 1 Each Tab PO 1 each HS CARRI Administration Heparin Sodium (Porcine) 0 unit 04/29/23 18:20 Heparin Sodium 1,000 Un/Ml (10ml Vl) IV PER PROTOCOL PRN Low PTT Protocol Heparin Sodium/Sodium Chloride 250 mls @ 8.981 mls/hr 04/29/23 18:30 04/29/23 18:55 25,000 unit/ Sodium Chloride IV 12 units/kg/hr .Q24H CARRI 8.981 mls/hr Administration Protocol 12 UNITS/KG/HR Heparin Sodium (Porcine) 10, 1,001 mls @ 999 mls/hr 05/01/23 07:00 000 unit/ Sodium Chloride IRRIGATION 05/01/23 23:00 ONCE PRN INTRA-OP Heparin Sodium (Porcine) 2,500 250.5 mls @ 250 mls/hr 05/01/23 07:00 unit/ Sodium Chloride IRRIGATION 05/01/23 23:00 ONCE PRN INTRA-OP Sodium Chloride 1,000 ml/ IV 1,000 mls @ 74.843 mls/hr 04/30/23 09:00 04/30/23 09:35 Solution IV 74.843 mls/hr .[id number] CARRI Administration 1 ML/KG/HR Nitroglycerin/Dextrose 50 mg/ 250 mls @ 1.5 mls/hr 04/30/23 09:00 04/30/23 09:34 IV Solution IV 5 mcg/min .Q24H CARRI 1.5 mls/hr Administration Protocol 5 MCG/MIN Nitroglycerin 0.4 mg 04/29/23 14:57 04/30/23 08:48 Nitroglycerin Sl Tabs 0.4 Mg Tab SUBLINGUAL 0.4 mg Q5M PRN Administration Chest Pain Nitroglycerin 1 inch 04/29/23 18:00 04/30/23 05:19 Nitroglycerin Oint 1 Inch/Gm Packet TOPICAL 1 inch Q6HR CARRI Administration Nitroglycerin 0.4 mg 04/30/23 08:50 Nitroglycerin Sl Tabs 0.4 Mg Tab SUBLINGUAL Q5M PRN Chest Pain Intake and Output 04/29/23 04/30/23 04/30/23 22:59 06:59 14:59 Intake Total 120 Balance 120 Intake: Oral 120 Other: # Voids 2 Weight 74.843 kg 04/30/23 07:06 04/30/23 07:06
[2023-04-30] MEDS ORDERED: IV FLUID CONTINUATION 1,000 ML IV ONE (11:15)
[2023-04-30] MEDS ORDERED: MIDAZOLAM 2 MG/2 ML VIAL IVP ONE (11:19)
[2023-04-30] MEDS ORDERED: fentaNYL (PF) 50 MCG/ML 2 ML AMP IVP ONE (11:19)
[2023-04-30] MEDS ORDERED: LIDOCAINE 1% INJ 10MG/ML (20 ML MDV) SQ ONE (11:20)
[2023-04-30] MEDS ORDERED: VERAPAMIL SYRINGE (5 MG/10 ML) INTRAARTER ONE (11:22)
[2023-04-30] MEDS ORDERED: HEPARIN SODIUM 1,000 UN/ML (10ML VL) IV ONE (11:29)
[2023-04-30] MEDS ORDERED: IOPAMIDOL-370 200ML BTL INJ ONE (11:45)
--- NOTE | 2023-04-30 11:56 | CA ---
Transthoracic Echo Report Name: Britany Soriano Age: 87 Gender: F : 1935 Exam Date: 04/30/2023 09:13 Exam Location: [facility] Ht (in): 65 Wt (lb): 165 Ordering Physician: Meliza Oviedo Attending/Referring Phys: [id number], [employer] Intern Jean Pierre Holley Procedure CPT: Indications: LV function, CP Cardiac Hx: Technical Quality: Fair Contrast 1: Total Dose (mL): Contrast 2: Total Dose (mL): MEASUREMENTS (Male / Female) Normal Values 2D ECHO LV Diastolic Diameter PLAX 4.7 cm 4.2 - 5.9 / 3.9 - 5.3 cm LV Systolic Diameter PLAX 2.7 cm IVS Diastolic Thickness 1.0 cm 0.6 - 1.0 / 0.6 - 0.9 cm LVPW Diastolic Thickness 1.0 cm 0.6 - 1.0 / 0.6 - 0.9 cm LV Relative Wall Thickness 0.4 RV Internal Dim ED PLAX 3.7 cm LVOT Diameter 2.0 cm Aortic Root Diameter 3.1 cm LA Systolic Diameter LX 2.6 cm 3.0 - 4.0 / 2.7 - 3.8 cm LV Diastolic Volume MOD BP 82.1 cm??? 67 - 155 / 56 - 104 cm??? LV Systolic Volume MOD BP 25.1 cm??? 22 - 58 / 19 - 49 cm??? LV Ejection Fraction MOD BP 69.4 % >= 55 % LV Cardiac Index MOD BP 1826.6 cm???/min???m??? LV Diastolic Volume MOD 4C 86.5 cm??? LV Systolic Volume MOD 4C 24.9 cm??? LV Ejection Fraction MOD 4C 71.2 % LV Cardiac Index MOD 4C 1976.8 cm???/min???m??? LV Diastolic Length 4C 6.3 cm LV Systolic Length 4C 4.9 cm LV Diastolic Volume MOD 2C 75.9 cm??? LV Systolic Volume MOD 2C 23.8 cm??? LV Ejection Fraction MOD 2C 68.7 % LV Cardiac Index MOD 2C 1672.4 cm???/min???m??? LV Diastolic Length 2C 6.5 cm LV Systolic Length 2C 5.3 cm LA Volume 93.1 cm??? 18 - 58 / 22 - 52 cm??? LA Volume Index 49.8 cm???/m??? 16 - 28 cm???/m??? DOPPLER AV Peak Velocity 205.8 cm/s AV Peak Gradient 16.9 mmHg AV Mean Velocity 141.1 cm/s AV Mean Gradient 9.0 mmHg AV Velocity Time Integral 57.3 cm AI Peak Velocity 341.2 cm/s AI Peak Gradient 46.6 mmHg AI Pressure Half Time 660.5 ms LVOT Peak Velocity 89.9 cm/s LVOT Peak Gradient 3.2 mmHg LVOT Velocity Time Integral 26.2 cm LVOT Stroke Volume 78.5 cm??? LVOT Stroke Volume Index 43.1 ml/m??? LVOT Cardiac Index 2517.6 cm???/min???m??? AV Area Cont Eq vti 1.4 cm??? AV Area Cont Eq pk 1.3 cm??? MV Peak Velocity 148.5 cm/s MV Peak Gradient 8.8 mmHg MV Mean Velocity 40.5 cm/s MV Mean Gradient 1.2 mmHg MV Velocity Time Integral 40.7 cm MR Peak Velocity 377.1 cm/s MR Peak Gradient 56.9 mmHg Mitral E Point Velocity 109.0 cm/s Mitral A Point Velocity 25.4 cm/s Mitral E to A Ratio 4.3 MV Deceleration Time 220.3 ms MV E' Velocity 6.9 cm/s Mitral E to MV E' Ratio 15.9 TR Peak Velocity 332.9 cm/s TR Peak Gradient 44.3 mmHg Right Ventricular Systolic Press 49.5 mmHg PV Peak Velocity 107.8 cm/s PV Peak Gradient 4.6 mmHg FINDINGS Left Ventricle LV appears mildly enlarged. Wall thickness appears within normal limits. Left ventricular ejection fraction is estimated at 55-60 %. Right Ventricle Normal right ventricular size. RVSP= 54mmHg. Right Atrium Mild right atrial dilatation. RA area= 20.0cm2 Left Atrium Severely increased left atrial volume. Mildly increased left atrial area. LA volume index= 51ml/m2 Mitral Valve Moderate Mitral valve thickening. Moderate MR. Aortic Valve Trileaflet aortic valve. Moderate AV calcification. At least Moderate AI. Tricuspid Valve Structurally normal tricuspid valve. Severe TR. Pulmonic Valve Pulmonic valve not well visualized. Mild PI. Pericardium Normal pericardium. Aorta Normal size aortic root. CONCLUSIONS Normal LV function Severe left atrial enlargement Moderate aortic regurgitation Moderate mitral regurgitation Moderate to severe tricuspid regurgitation Previewed by: Dr. Wang Chicas MD (Electronically Signed) Final Date: 30 April 2023 11:55
[2023-04-30] MEDS ORDERED: RX INFO: IV CONTRAST WAS GIVEN 1 EACH MISC MISCELLANE PRN (12:12)
--- NOTE | 2023-04-30 12:22 | CC ---
CARDIAC CATHETERIZATION REPORT INDICATION: Non ST-segment elevation AR. HISTORY: This is an 87-year-old lady with known history of coronary artery disease, status post prior angioplasty with stent placement of diagonal branch, who presented to hospital with chest pain and had mild troponin elevation. She was seen by my associate, Dr. Booker, who advised her to undergo cardiac catheterization and asked me to perform the same. PROCEDURE NOTE: After obtaining informed consent, left heart catheterization and coronary angiogram were performed via right radial artery using standard Bianca catheters. The patient tolerated the procedure well without any obvious immediate complications, received moderate conscious sedation. Total sedation time was 20 minutes. The right radial artery access was obtained using Seldinger technique. Catheters and wires were floated into the ascending aorta under fluoroscopic guidance, where they were exchanged. The patient received verapamil and heparin per protocol. A TR band was used for hemostasis. FINDINGS: 1. Hemodynamics: Central aortic pressure is 140/70 mm. 2. Left ventriculogram: Left ventriculogram is not performed. 3. ANGIOGRAPHIC DATA: a.Right coronary artery: Right coronary artery is a large dominant vessel that shows mild nonobstructive CAD. b.Left main coronary artery appears calcified, but is free of significant stenosis. Divides into left anterior descending coronary artery and circumflex coronary artery. c.Circumflex coronary artery and its branches are free of significant stenosis. LAD gives off a large caliber diagonal branch, which was previously stented and the stent appears patent. Proximal LAD shows an intermediate lesion may be around 40% to 50%. CONCLUSIONS: Patent stent within the diagonal branch. Intermediate coronary artery disease involving proximal LAD. PLAN: We will treat the patient with optimal medical therapy with aspirin, nitrates, beta blockers, and statins and consider an outpatient stress test if she continues to have symptoms. MMODL / IJN: [id number] /
--- NOTE | 2023-04-30 15:23 | P.PN ---
Progress Note - Text Progress Note Date: 04/30/23 Chief Complaint: Chest pain This is a pleasant 87-year-old patient who follows Dr. Bernardo. Patient is known history of CAD with stent in around 2018. About a year ago patient underwent stress test by Dr. Vann that was apparently negative. For last 2-3 days patient has been not feeling well. Having intermittent chest discomfort. His morning patient developed more prominent chest discomfort anteriorly going down the left arm to her hands. Has been intermittently short of breath perspiring. Also became lightheaded. Pain is not worse with activity. Patient presented to [facility]. EKG showed nonspecific findings troponin I was 0.055. Decided to come in here. April 30: Underwent cardiac catheterization. Nonobstructive disease. For medical management. Reclining in bed. Eating lunch. No chest pain. Increase activity. It does okay then home tomorrow. Cardiac catheterization: Proximal LAD 40-50% disease. Active Medications Allopurinol (Allopurinol 300 Mg Tab) 300 mg PO DAILY [facility] Last Admin: 04/30/23 08:48 Dose: 300 mg Alprazolam (Alprazolam 0.25 Mg Tab) 0.25 mg PO Q6HR PRN PRN Reason: Mild Anxiety Alprazolam (Alprazolam 0.5 Mg Tab) 0.5 mg PO Q6HR PRN PRN Reason: Moderate Anxiety Aspirin (Aspirin 81 Mg) 81 mg PO DAILY [facility] Last Admin: 04/30/23 09:21 Dose: Not Given Atorvastatin Calcium (Atorvastatin 40 Mg Tab) 40 mg PO [facility] Lisinopril/HCTZ (Lisinopril-Hctz 10-12.5 Mg 1 Each Tab) 1 each PO HS [facility] Last Admin: 04/29/23 20:28 Dose: 1 each Sodium Chloride 1,000 ml/ IV (Solution) 1,000 mls @ 74.843 mls/hr IV .[id number] [facility] Last Admin: 04/30/23 09:35 Dose: 74.843 mls/hr Sodium Chloride (Saline 0.9%) 1,000 mls @ 75 mls/hr IV .[id number] [facility] Isosorbide Mononitrate (Isosorbide Mononitrate Er 30 Mg Tab.Er.24h) 30 mg PO DAILY [facility] Last Admin: 04/30/23 12:12 Dose: 30 mg Miscellaneous Information (Rx Info: Iv Contrast Was Given 1 Each Misc) 1 each MISCELLANE DAILY PRN PRN Reason: Per Protocol Stop: 05/02/23 12:12 Nitroglycerin (Nitroglycerin Sl Tabs 0.4 Mg Tab) 0.4 mg SUBLINGUAL Q5M PRN PRN Reason: Chest Pain Rivaroxaban (Rivaroxaban 15 Mg Tab) 15 mg PO W/SUPPER CARRI; Protocol Past medical history to include: Atrial fibrillation, CAD with stent, hypertension, hyperlipidemia, Social history: Nonsmoker. Alcohol occasionally. Lives with her . Physical examination: VITAL SIGNS: 98, 51, 17, 150/69, percent room air GENERAL: Reclining in bed, eating lunch EYES: Pupils equal. Conjunctiva normal. HEENT: External appearance of nose and ears normal, oral cavity grossly normal. NECK: JVD not raised; masses not palpable. HEART: First and second heart sounds are normal; no edema. LUNGS: Respiratory rate increased; mild wheezing and slight crackle. ABDOMEN: Soft, nontender, liver spleen not palpable, no masses palpable. PSYCH: Alert and oriented x3; mood and affect anxiousl. MUSCULOSKELETAL:No Clubbing/cyanosis;muscles-grossly intact. OA INVESTIGATIONS, reviewed in the clinical context: April 30: White count 5.9 hemoglobin 10.8 platelets 23 potassium 5.3 BUN 44 creatinine 1.20 April 29: Troponin: 0.059, 0.053 From [facility]: 0.055. Labs reviewed from [facility]. EKG tracing personally reviewed by me-normal sinus rhythm. Nonspecific T-wave changes. Assessment and plan: -Probable unstable angina in a patient known CAD. Last stress test was about a year ago. Troponin mildly positive. -Nonobstructive CAD. Cardiac catheterization with Dr. Naida Chicas showed LAD proximal: 40-50% disease. Medical management -Hyperuricemia Allopurinol 300 mg a day -Essential hypertension Zestoretic Lopressor, Imdur -Paroxysmal atrial fibrillation, currently sinus rhythm Xarelto. Lopressor -Hyperlipidemia Lipitor -CAD with a history of stent Aspirin Lopressor, Lipitor Discussed with patient. Follow with cardiology. Activity as tolerated. Past Medical History Past Medical History: Atrial Fibrillation, Coronary Artery Disease (CAD), Hyperlipidemia, Hypertension Additional Past Medical History / Comment(s): stent placed 2017 History of Any Multi-Drug Resistant Organisms: None Reported Past Surgical History: Appendectomy, Heart Catheterization With Stent, Hysterectomy Date of Last Stent Placement:: 5 years ago Past Psychological History: No Psychological Hx Reported Smoking Status: Never smoker Past Alcohol Use History: Occasional Past Drug Use History: None Reported
[2023-04-30 16:11] LABS: Chol/HDL Ratio 2.39 Ratio; LDL Cholesterol,Calculated 52.6 mg/dL (0.0-131.0); VLDL Calculation 17.08 mg/dL (5.00-40.00)
[2023-04-30] MEDS: SODIUM CHLORIDE 0.9% 1,000 ML IV SCH (16:19)
[2023-04-30] MEDS: RIVAROXABAN 15 MG TAB PO SCH (17:02)
[2023-04-30] MEDS: LISINOPRIL-HCTZ 10-12.5 MG 1 EACH TAB PO SCH (21:10)
[2023-04-30] MEDS: ATORVASTATIN 40 MG TAB PO SCH (21:10)
[2023-05-01] MEDS: SODIUM CHLORIDE 0.9% 1,000 ML IV SCH ×2 (02:14→16:09)
[2023-05-01] MEDS ORDERED: HEPARIN SODIUM,PORCINE 10,000 UNIT in SODIUM CHLORIDE 0.9% 1,000 ML IRRIGATION PRN (07:00)
[2023-05-01] MEDS ORDERED: HEPARIN SODIUM,PORCINE (1 ML) 2,500 UNIT in SODIUM CHLORIDE 0.9% 250 ML IRRIGATION PRN (07:00)
[2023-05-01 08:10] LABS: African American GFR (CKD) 60 (>60 ml/min/1.73 sqM); Anion Gap 6 mmol/L; Blood Urea Nitrogen 34 mg/dL (7-17); Calcium 9.4 mg/dL (8.4-10.2); Carbon Dioxide 26 mmol/L (22-30); Chloride 106 mmol/L (98-107); Glucose 95 mg/dL (74-99); Non-African American GFR(CKD) 52 (>60 ml/min/1.73 sqM); Potassium 5.2 mmol/L (3.5-5.1); Sodium 138 mmol/L (137-145)
[2023-05-01] MEDS: ISOSORBIDE MONONITRATE ER 60 MG TAB.ER.24H PO SCH (08:40)
[2023-05-01] MEDS: RANOLAZINE 500 MG TAB.ER.12H PO SCH ×2 (08:40→20:19)
[2023-05-01] MEDS: ASPIRIN 81 MG PO SCH (08:40)
[2023-05-01] MEDS: allopurinoL 300 MG TAB PO SCH (08:40)
[2023-05-01] MEDS: LISINOPRIL-HCTZ 20-12.5 MG 1 EACH TAB PO SCH (08:46)
[2023-05-01] MEDS ORDERED: SODIUM ZIRCONIUM CYCLOSILICATE 10 GM PACKET PO ONE (10:30)
--- NOTE | 2023-05-01 12:52 | P.PN ---
Subjective HISTORY OF PRESENT ILLNESS: This is a 87-year-old female with a past medical history significant for paroxysmal atrial fibrillation, coronary artery disease with previous stenting of the LAD, valvular heart disease, hypertension, and hyperlipidemia. Patient follows in the office with Dr. Chicas. We have been asked to see the patient in consultation for chest pain. Patient examined at the bedside. Patient states she has been having chest pain for the past 2 days. She states it is becoming more constant over the past 24 hours. She states it feels like a pressure type sensation. She states that pain went down her left arm and her left arm feels heavy this morning. She continues to report mild chest discomfort this morning and is rating it 2/10. She is currently on IV heparin. * EKG reveals sinus mechanism with nonspecific ST-T wave changes * Chest xray negative for acute process * Laboratory data: WBC 5.9. Hemoglobin 10.8. Platelet count 208. Sodium 139. Potassium 5.3. BUN 44. Creatinine 1.20. Troponin 0.059. 0.053. 0.048. * Current home cardiac medications include Lipitor 20 mg at night, Lasix 20 g at night, isosorbide 30 mg daily, Xarelto 20 mg at night, and lisinopril- hydrochlorothiazide 10-12.5mg at night * Most recent echocardiogram obtained in October 2022 revealed ejection fraction 55%, moderate aortic regurgitation, moderate tricuspid regurgitation * Patient underwent Lexiscan stress test in June 2021 which was negative for ischemia * Cardiac catheterization history: April 2012 revealing patent stent in the LAD 05/01/2023 Patient is status post cardiac catheterization revealing patent stent within the diagonal branch. Intermediate coronary artery disease involving the proximal LAD. Medical management was recommended. Patient examined this morning at the bedside. Patient has continued to have some chest discomfort overnight and this morning. She denies any shortness of breath. Echocardiogram completed revealing ejection fraction 55-60%, moderate MR, severe TR, moderate AI, and mild PI PHYSICAL EXAM: VITAL SIGNS: Reviewed. GENERAL: Well-developed in no acute distress. HEENT: Head is normocephalic. Pupils are equal, round. Sclerae anicteric. Mucous membranes of the mouth are moist. Neck supple. No JVD or thyromegaly LUNGS: Respirations even and unlabored. Lungs essentially clear to auscultation bilaterally. HEART: Regular rate and rhythm. S1 and S2 heard. ABDOMEN: Soft. Nondistended. Nontender. EXTREMITIES: Normal range of motion. No clubbing or cyanosis. Peripheral pulses intact. No lower extremity edema NEUROLOGIC: Awake and alert. Oriented x 3. ASSESSMENT: Unstable angina Coronary artery disease with previous stenting of the LAD Paroxysmal atrial fibrillation Valvular heart disease Hypertension Hyperlipidemia PLAN: Continue current cardiac medications Increase Imdur to 60 mg daily Add Ranexa to 500 mg twice a day Increase lisinopril to 20 mg daily for optimal blood pressure control No beta irene secondary to borderline bradycardia Continue to monitor patient for an additional 24 hours Further recommendations pending patient's course Nurse practitioner note has been reviewed by physician. Signing provider agrees with the documented findings, assessment, and plan of care. Objective - Vital Signs Vital signs: Vital Signs Temp 98.2 F 05/01/23 08:40 Pulse 57 L 05/01/23 11:30 Resp 18 05/01/23 11:30 BP 119/50 05/01/23 11:30 Pulse Ox 100 05/01/23 11:30 FiO2 Intake & Output 04/30/23 05/01/23 05/01/23 18:59 06:59 18:59 Intake Total 600 118 Balance 600 118 Intake: IV 300 Oral 300 118 Other: # Voids 1 2 - Labs CBC & Chem 7: 04/30/23 07:06 05/01/23 06:55 Labs: Abnormal Lab Results - Last 24 Hours (Table) 05/01/23 Range/Units 06:55 Potassium 5.2 H (3.5-5.1) mmol/L BUN 34 H (7-17) mg/dL
--- NOTE | 2023-05-01 14:59 | P.PN ---
Subjective Progress Note Date: 05/01/23 This is an 87 year old female who comes in with mid sternal chest pain and underwent cardiac catheterization. Cath reveals 40-50% stenosis of LAD and patient will be optimized on cardiac medications. Patient continues to report intermittent episodes of chest pain last night and at 5am today. Imdur has been increased, lisinopril was added and patient has also been started on Ranexa. Patient was also started on pepcid. Potassium 5.2 today. Review of Systems Constitutional: Denied any fatigue denied any fever. Cardio vascular: denied any chest pain, palpitations Gastrointestinal: denied any nausea, vomiting, diarrhea Pulmonary: Denied any shortness of breath cough Neurologic denied any new focal deficits All inpatient medications were reviewed and appropriate changes in these medications as dictated in the interval history and assessment and plan. PHYSICAL EXAMINATION: GENERAL: The patient is alert and oriented x3, not in any acute distress. Well developed, well nourished. HEENT: Pupils are round and equally reacting to light. EOMI. No scleral icterus. No conjunctival pallor. Normocephalic, atraumatic. No pharyngeal erythema. No thyromegaly. CARDIOVASCULAR: S1 and S2 present. No murmurs, rubs, or gallops. PULMONARY: Chest is clear to auscultation, no wheezing or crackles. ABDOMEN: Soft, nontender, nondistended, normoactive bowel sounds. No palpable organomegaly. MUSCULOSKELETAL: No joint swelling or deformity. EXTREMITIES: No cyanosis, clubbing, or pedal edema. NEUROLOGICAL: Gross neurological examination did not reveal any focal deficits. SKIN: No rashes. Assessment -Probable unstable angina with elevated troponin, patient has continued intermittent chest pain. Imdur was increased, started on ranexa -Nonobstructive CAD. Cardiac catheterization with Dr. Naida Chicas showed LAD proximal: 40-50% disease patient will be medically managed. -Hyperuricemia -Essential hypertension -Paroxysmal atrial fibrillation, currently sinus rhythm anticoagulated with xarelto -Hyperlipidemia -CAD with a history of stent placement -Mild JOSE prerenal improved with hydration -Hyperkalemia from the JOSE and patient is also on ACEI, lokelma x 1 given and recommend to repeat labs in the AM GI prophylaxis pepcid has been added DVT prophylaxis on xarelto as mentioned Plan Wean oxygen and check walking pulse ox Patient will be monitored overnight on school bus monitor F/U labs in AM monitor potassium level Probable D/C home in the AM The impression and plan of care has been dictated by Nurse Shaunna Urias as directed. Dr. Ulices MD I have performed a history and physical examination and medical decision making of this patient, discussed the same with the dictator, and agree with the dict ators assessment and plan as written, documented as a scribe. Based on total visit time, I have performed more than 50% of this visit. Objective - Vital Signs Vital signs: Vital Signs Temp 98.2 F 05/01/23 08:40 Pulse 58 L 05/01/23 08:40 Resp 17 05/01/23 08:40 BP 168/69 05/01/23 08:40 Pulse Ox 98 05/01/23 08:40 FiO2 Intake & Output 04/30/23 05/01/23 05/01/23 18:59 06:59 18:59 Intake Total 600 118 Balance 600 118 Intake: IV 300 Oral 300 118 Other: # Voids 1 2 - Labs CBC & Chem 7: 04/30/23 07:06 05/01/23 06:55 Labs: Abnormal Lab Results - Last 24 Hours (Table) 05/01/23 Range/Units 06:55 Potassium 5.2 H (3.5-5.1) mmol/L BUN 34 H (7-17) mg/dL Assessment and Plan Time with Patient: Less than 30
[2023-05-01] MEDS: SODIUM CHLORIDE 0.9% 1,000 ML in EMPTY BAG 1 BAG IV SCH (16:10)
[2023-05-01] MEDS: RIVAROXABAN 15 MG TAB PO SCH (16:53)
[2023-05-01] MEDS: ATORVASTATIN 40 MG TAB PO SCH (20:19)
[2023-05-01 22:39] VITALS: RESP 16
[2023-05-02] MEDS: SODIUM CHLORIDE 0.9% 1,000 ML in EMPTY BAG 1 BAG IV SCH ×3 (00:32→21:10)
[2023-05-02] MEDS: SODIUM CHLORIDE 0.9% 1,000 ML IV SCH ×3 (03:09→21:10)
[2023-05-02] MEDS: allopurinoL 300 MG TAB PO SCH (08:48)
[2023-05-02] MEDS: ASPIRIN 81 MG PO SCH (08:48)
[2023-05-02] MEDS: LISINOPRIL-HCTZ 20-12.5 MG 1 EACH TAB PO SCH (08:49)
[2023-05-02] MEDS: RANOLAZINE 500 MG TAB.ER.12H PO SCH ×2 (08:49→20:01)
[2023-05-02] MEDS: ISOSORBIDE MONONITRATE ER 60 MG TAB.ER.24H PO SCH (08:49)
[2023-05-02] MEDS: FAMOTIDINE 20 MG TAB PO SCH (08:49)
[2023-05-02] MEDS: amLODIPine 5 MG TAB PO SCH (09:48)
[2023-05-02 10:33] LABS: African American GFR (CKD) 56 (>60 ml/min/1.73 sqM); Anion Gap 7 mmol/L; Blood Urea Nitrogen 31 mg/dL (7-17); Calcium 9.1 mg/dL (8.4-10.2); Carbon Dioxide 26 mmol/L (22-30); Chloride 103 mmol/L (98-107); Glucose 97 mg/dL (74-99); Non-African American GFR(CKD) 49 (>60 ml/min/1.73 sqM); Potassium 4.7 mmol/L (3.5-5.1); Sodium 136 mmol/L (137-145)
--- NOTE | 2023-05-02 12:14 | P.PN ---
Subjective HISTORY OF PRESENT ILLNESS: This is a 87-year-old female with a past medical history significant for paroxysmal atrial fibrillation, coronary artery disease with previous stenting of the LAD, valvular heart disease, hypertension, and hyperlipidemia. Patient follows in the office with Dr. Chicas. We have been asked to see the patient in consultation for chest pain. Patient examined at the bedside. Patient states she has been having chest pain for the past 2 days. She states it is becoming more constant over the past 24 hours. She states it feels like a pressure type sensation. She states that pain went down her left arm and her left arm feels heavy this morning. She continues to report mild chest discomfort this morning and is rating it 2/10. She is currently on IV heparin. * EKG reveals sinus mechanism with nonspecific ST-T wave changes * Chest xray negative for acute process * Laboratory data: WBC 5.9. Hemoglobin 10.8. Platelet count 208. Sodium 139. Potassium 5.3. BUN 44. Creatinine 1.20. Troponin 0.059. 0.053. 0.048. * Current home cardiac medications include Lipitor 20 mg at night, Lasix 20 g at night, isosorbide 30 mg daily, Xarelto 20 mg at night, and lisinopril- hydrochlorothiazide 10-12.5mg at night * Most recent echocardiogram obtained in October 2022 revealed ejection fraction 55%, moderate aortic regurgitation, moderate tricuspid regurgitation * Patient underwent Lexiscan stress test in June 2021 which was negative for ischemia * Cardiac catheterization history: April 2012 revealing patent stent in the LAD 05/01/2023 Patient is status post cardiac catheterization revealing patent stent within the diagonal branch. Intermediate coronary artery disease involving the proximal LAD. Medical management was recommended. Patient examined this morning at the bedside. Patient has continued to have some chest discomfort overnight and this morning. She denies any shortness of breath. Echocardiogram completed revealing ejection fraction 55-60%, moderate MR, severe TR, moderate AI, and mild PI 05/02/2023 Patient examined this morning at the bedside. Patient continues to report mild chest discomfort. Denies SOB. Vital signs are stable. PHYSICAL EXAM: VITAL SIGNS: Reviewed. GENERAL: Well-developed in no acute distress. HEENT: Head is normocephalic. Pupils are equal, round. Sclerae anicteric. Mucous membranes of the mouth are moist. Neck supple. No JVD or thyromegaly LUNGS: Respirations even and unlabored. Lungs essentially clear to auscultation bilaterally. HEART: Regular rate and rhythm. S1 and S2 heard. ABDOMEN: Soft. Nondistended. Nontender. EXTREMITIES: Normal range of motion. No clubbing or cyanosis. Peripheral p ulses intact. No lower extremity edema NEUROLOGIC: Awake and alert. Oriented x 3. ASSESSMENT: Unstable angina Coronary artery disease with previous stenting of the LAD Paroxysmal atrial fibrillation Valvular heart disease Hypertension Hyperlipidemia PLAN: Continue current cardiac medications Add Norvasc 5mg daily to help reduce afterload No beta irene secondary to borderline bradycardia Continue to monitor patient for an additional 24 hours. Discharge home tomorrow. Further recommendations pending patient's course Nurse practitioner note has been reviewed by physician. Signing provider agrees with the documented findings, assessment, and plan of care. Objective - Vital Signs Vital signs: Vital Signs Temp 97.4 F L 05/02/23 11:40 Pulse 67 05/02/23 11:40 Resp 16 05/02/23 11:40 BP 144/57 05/02/23 11:40 Pulse Ox 99 05/02/23 11:40 FiO2 Intake & Output 05/01/23 05/02/23 05/02/23 18:59 06:59 18:59 Intake Total 236 840 Balance 236 840 Intake: Oral 236 840 Other: # Voids 3 2 - Labs CBC & Chem 7: 04/30/23 07:06 05/02/23 09:26 Labs: Abnormal Lab Results - Last 24 Hours (Table) 05/02/23 Range/Units 09:26 Sodium 136 L (137-145) mmol/L BUN 31 H (7-17) mg/dL
--- NOTE | 2023-05-02 13:08 | P.PN ---
Subjective Progress Note Date: 05/02/23 87 year old female who comes in with mid sternal chest pain and underwent cardiac catheterization. Cath reveals 40-50% stenosis of LAD and patient will be optimized on cardiac medications. Patient continues to report intermittent episodes of chest pain last night and at 5am today. Imdur has been increased, lisinopril was added and patient has also been started on Ranexa. 05/02: Patient seen and evaluated bedside. Patient seen by cardiology. Patient had intermittent chest pain. Continue with medical management. Once cleared by cardiology for discharge patient to go home Objective - Vital Signs Vital signs: Vital Signs Temp 97.4 F L 05/02/23 11:40 Pulse 67 05/02/23 11:40 Resp 16 05/02/23 11:40 BP 144/57 05/02/23 11:40 Pulse Ox 99 05/02/23 11:40 FiO2 Intake & Output 05/01/23 05/02/23 05/02/23 18:59 06:59 18:59 Intake Total 236 958 Balance 236 958 Intake: Oral 236 958 Other: # Voids 3 2 - Exam PHYSICAL EXAMINATION: GENERAL: The patient is alert and oriented x3, not in any acute distress. Well developed, well nourished. HEENT: Pupils are round and equally reacting to light. EOMI. No scleral icterus. No conjunctival pallor. Normocephalic, atraumatic. No pharyngeal erythema. No thyromegaly. CARDIOVASCULAR: S1 and S2 present. No murmurs, rubs, or gallops. PULMONARY: Chest is clear to auscultation, no wheezing or crackles. ABDOMEN: Soft, nontender, nondistended, normoactive bowel sounds. No palpable organomegaly. MUSCULOSKELETAL: No joint swelling or deformity. EXTREMITIES: No cyanosis, clubbing, or pedal edema. NEUROLOGICAL: Gross neurological examination did not reveal any focal deficits. SKIN: No rashes. - Labs CBC & Chem 7: 04/30/23 07:06 05/02/23 09:26 Labs: Abnormal Lab Results - Last 24 Hours (Table) 05/02/23 Range/Units 09:26 Sodium 136 L (137-145) mmol/L BUN 31 H (7-17) mg/dL Assessment and Plan Assessment: Assessment * Coronary artery disease with unstable angina * Paroxysmal atrial fibrillation * Valvular heart disease * Hypertension * Hyperlipidemia * Acute kidney injury on admission resolved * Hyperkalemia resolved * Consultations obtained from cardiology, status post cardiac catheterization intermediate disease noted in proximal LAD * In regards to hypertension continue medical management amlodipine, aspirin, Lipitor, Imdur, Ranexa * In regards to coronary artery disease continue current medical management * In regards to history affective fibrillation continue Xarelto
[2023-05-02] MEDS: RIVAROXABAN 15 MG TAB PO SCH (16:56)
[2023-05-02] MEDS: ATORVASTATIN 40 MG TAB PO SCH (20:01)
[2023-05-03] MEDS: FAMOTIDINE 20 MG TAB PO SCH (08:24)
[2023-05-03] MEDS: ASPIRIN 81 MG PO SCH (08:24)
[2023-05-03] MEDS: ISOSORBIDE MONONITRATE ER 60 MG TAB.ER.24H PO SCH (08:25)
[2023-05-03] MEDS: RANOLAZINE 500 MG TAB.ER.12H PO SCH (08:25)
[2023-05-03] MEDS: LISINOPRIL-HCTZ 20-12.5 MG 1 EACH TAB PO SCH (08:25)
[2023-05-03] MEDS: allopurinoL 300 MG TAB PO SCH (08:25)
[2023-05-03] MEDS: amLODIPine 5 MG TAB PO SCH (08:25)
--- NOTE | 2023-05-03 10:30 | P.PN ---
Subjective HISTORY OF PRESENT ILLNESS: This is a 87-year-old female with a past medical history significant for paroxysmal atrial fibrillation, coronary artery disease with previous stenting of the LAD, valvular heart disease, hypertension, and hyperlipidemia. Patient follows in the office with Dr. Chicas. We have been asked to see the patient in consultation for chest pain. Patient examined at the bedside. Patient states she has been having chest pain for the past 2 days. She states it is becoming more constant over the past 24 hours. She states it feels like a pressure type sensation. She states that pain went down her left arm and her left arm feels heavy this morning. She continues to report mild chest discomfort this morning and is rating it 2/10. She is currently on IV heparin. * EKG reveals sinus mechanism with nonspecific ST-T wave changes * Chest xray negative for acute process * Laboratory data: WBC 5.9. Hemoglobin 10.8. Platelet count 208. Sodium 139. Potassium 5.3. BUN 44. Creatinine 1.20. Troponin 0.059. 0.053. 0.048. * Current home cardiac medications include Lipitor 20 mg at night, Lasix 20 g at night, isosorbide 30 mg daily, Xarelto 20 mg at night, and lisinopril- hydrochlorothiazide 10-12.5mg at night * Most recent echocardiogram obtained in October 2022 revealed ejection fraction 55%, moderate aortic regurgitation, moderate tricuspid regurgitation * Patient underwent Lexiscan stress test in June 2021 which was negative for ischemia * Cardiac catheterization history: April 2012 revealing patent stent in the LAD 05/01/2023 Patient is status post cardiac catheterization revealing patent stent within the diagonal branch. Intermediate coronary artery disease involving the proximal LAD. Medical management was recommended. Patient examined this morning at the bedside. Patient has continued to have some chest discomfort overnight and this morning. She denies any shortness of breath. Echocardiogram completed revealing ejection fraction 55-60%, moderate MR, severe TR, moderate AI, and mild PI 05/02/2023 Patient examined this morning at the bedside. Patient continues to report mild chest discomfort. Denies SOB. Vital signs are stable. 05/03/2023 Patient examined this morning at the bedside. Patient denies chest pain or pressure. She states she had one mild episode this morning that only lasted for about a minute and then resolved on its own. She denies any shortness of breath. Vital signs are stable. Blood pressure is improved today. PHYSICAL EXAM: VITAL SIGNS: Reviewed. GENERAL: Well-developed in no acute distress. HEENT: Head is normocephalic. Pupils are equal, round. Sclerae anicteric. Mucous membranes of the mouth are moist. Neck supple. No JVD or thyromegaly LUNGS: Respirations even and unlabored. Lungs essentially clear to auscultation bilaterally. HEART: Regular rate and rhythm. S1 and S2 heard. ABDOMEN: Soft. Nondistended. Nontender. EXTREMITIES: Normal range of motion. No clubbing or cyanosis. Peripheral pulses intact. No lower extremity edema NEUROLOGIC: Awake and alert. Oriented x 3. ASSESSMENT: Unstable angina Coronary artery disease with previous stenting of the LAD Paroxysmal atrial fibrillation Valvular heart disease Hypertension Hyperlipidemia PLAN: Continue current cardiac medications No beta irene secondary to borderline bradycardia Patient is stable for discharge home today from a cardiac standpoint She is to follow-up post discharge in the office Nurse practitioner note has been reviewed by physician. Signing provider agrees with the documented findings, assessment, and plan of care. Objective - Vital Signs Vital signs: Vital Signs Temp 98.1 F 05/03/23 08:21 Pulse 59 L 05/03/23 08:21 Resp 16 05/03/23 08:22 BP 145/69 05/03/23 08:21 Pulse Ox 98 05/03/23 08:38 FiO2 Intake & Output 05/02/23 05/03/23 05/03/23 18:59 06:59 18:59 Intake Total 1438 480 Balance 1438 480 Intake: Oral 1438 480 Other: # Voids 4 3 # Bowel Movements 1 - Labs CBC & Chem 7: 04/30/23 07:06 05/02/23 09:26 Labs: Abnormal Lab Results - Last 24 Hours (Table) 05/02/23 Range/Units 09:26 Sodium 136 L (137-145) mmol/L BUN 31 H (7-17) mg/dL
[2023-05-03 11:48] VITALS: BP 105/47; PULSE 52; TEMP 97.8
--- NOTE | 2023-05-03 12:11 | P.DS ---
Providers Date of admission: 04/29/23 14:58 Expected date of discharge: 05/03/23 Attending physician: Baljeet Vail Consults: 04/29/23 14:57 Consult Physician Urgent Consulting Provider: [facility] Consult Reason/Comments: Chest pain Do you want consulting provider notified?: Yes Primary care physician: [facility] Course: 87 year old female who comes in with mid sternal chest pain and underwent cardiac catheterization. Cath reveals 40-50% stenosis of LAD and patient will be optimized on cardiac medications. Patient continues to report intermittent ep isodes of chest pain last night and at 5am today. Imdur has been increased, lisinopril was added and patient has also been started on Ranexa. 05/02: Patient seen and evaluated bedside. Patient seen by cardiology. Patient had intermittent chest pain. Continue with medical management. Once cleared by cardiology for discharge patient to go home 05/03: Patient seen and evaluated and bedside, blood pressure well controlled, continue with current cardiac medications. Patient cleared for discharge by cardiology PHYSICAL EXAMINATION: GENERAL: The patient is alert and oriented x3, not in any acute distress. Well developed, well nourished. HEENT: Pupils are round and equally reacting to light. EOMI. No scleral icterus. No conjunctival pallor. Normocephalic, atraumatic. No pharyngeal erythema. No thyromegaly. CARDIOVASCULAR: S1 and S2 present. No murmurs, rubs, or gallops. PULMONARY: Chest is clear to auscultation, no wheezing or crackles. ABDOMEN: Soft, nontender, nondistended, normoactive bowel sounds. No palpable organomegaly. MUSCULOSKELETAL: No joint swelling or deformity. EXTREMITIES: No cyanosis, clubbing, or pedal edema. NEUROLOGICAL: Gross neurological examination did not reveal any focal deficits. SKIN: No rashes. Assessment: Assessment * Coronary artery disease with unstable angina * Paroxysmal atrial fibrillation * Valvular heart disease * Hypertension * Hyperlipidemia * Acute kidney injury on admission resolved * Hyperkalemia resolved * Consultations obtained from cardiology, status post cardiac catheterization intermediate disease noted in proximal LAD * In regards to hypertension continue medical management amlodipine, aspirin, Lipitor, Imdur, Ranexa * In regards to coronary artery disease continue current medical management * In regards to history affective fibrillation continue Xarelto, not on beta irene secondary to bradycardia Patient Condition at Discharge: Stable Plan - Discharge Summary Discharge Rx Participant: No New Discharge Prescriptions: New Isosorbide Mononitrate ER [Imdur] 60 mg PO DAILY 30 Days #30 tab amLODIPine [Norvasc] 5 mg PO DAILY 30 Days #30 tab Ranolazine [Ranexa] 500 mg PO Q12HR 30 Days #60 tab Lisinopril-Hctz 20-12.5 mg [Zestoretic 20-12.5] 1 each PO DAILY 30 Days #30 tab Aspirin [Adult Low Dose Aspirin EC] 81 mg PO DAILY 30 Days #30 tab Continue Atorvastatin Calcium [Lipitor] 20 mg PO HS allopurinoL [Zyloprim] 300 mg PO DAILY Rivaroxaban [Xarelto] 20 mg PO HS Furosemide [Lasix] 20 mg PO HS Discontinued Isosorbide Mononitrate ER [Imdur] 30 mg PO DAILY Lisinopril-Hctz 10-12.5 mg [Zestoretic 10-12.5] 1 tab PO HS #30 tab Discharge Medication List Atorvastatin Calcium [Lipitor] 20 mg PO HS 03/27/19 [History] allopurinoL [Zyloprim] 300 mg PO DAILY 03/27/19 [History] Rivaroxaban [Xarelto] 20 mg PO HS 08/01/22 [History] Furosemide [Lasix] 20 mg PO HS 04/29/23 [History] Aspirin [Adult Low Dose Aspirin EC] 81 mg PO DAILY 30 Days #30 tab 05/03/23 [Rx] Isosorbide Mononitrate ER [Imdur] 60 mg PO DAILY 30 Days #30 tab 05/03/23 [Rx] Lisinopril-Hctz 20-12.5 mg [Zestoretic 20-12.5] 1 each PO DAILY 30 Days #30 tab 05/03/23 [Rx] Ranolazine [Ranexa] 500 mg PO Q12HR 30 Days #60 tab 05/03/23 [Rx] amLODIPine [Norvasc] 5 mg PO DAILY 30 Days #30 tab 05/03/23 [Rx] Follow up Appointment(s)/Referral(s): Westley Bernardo MD [Primary Care Provider] - 1-2 days Discharge Disposition: HOME SELF-CARE
== END 2023-05-03 14:24 | disposition home or self-care (01) | DRG 287 ==
LOC: EC 14:09 → 3SCARD 14:58
PROVIDERS: ADMIT Hospitalist; ATTEND Hospitalist
PROC: 4A023N7 Measurement of Cardiac Sampling and Pressure, Left Heart, Percutaneous Approach (ICD-10-PCS; principal; 2023-05-01)
PROC: B2111ZZ Fluoroscopy of Multiple Coronary Arteries using Low Osmolar Contrast (ICD-10-PCS; 2023-05-01)
DX: I25.110 Atherosclerotic heart disease of native coronary artery with unstable angina pectoris (principal); N17.9 Acute kidney failure, unspecified; I48.0 Paroxysmal atrial fibrillation; I10 Essential (primary) hypertension; E79.0 Hyperuricemia without signs of inflammatory arthritis and tophaceous disease; E78.5 Hyperlipidemia, unspecified; E87.5 Hyperkalemia; I08.1 Rheumatic disorders of both mitral and tricuspid valves; R00.1 Bradycardia, unspecified; J98.01 Acute bronchospasm; I25.2 Old myocardial infarction; Z79.899 Other long term (current) drug therapy; Z79.01 Long term (current) use of anticoagulants; Z95.5 Presence of coronary angioplasty implant and graft
CPT/HCPCS: 36415; 71046; 80048; 80061; 84484; 85025; 85730; 93005; 93306; 93454; 94760; 99285

== ENCOUNTER → 2024-03-03 | Outpatient (CLI) | payer MEDICARE, OTHER ==
--- NOTE | 2024-04-01 19:41 | MR ---
"Mackenzie Soriano : 1935 EXAMINATION: MRI Spine Lumbar w/o Contrast TECHNIQUE: Multiplanar, multisequence images of the lumbar spine without IV contrast. DATE: 03/03/2024 12:26 PM COMPARISON: None available during downtime HISTORY: 88-year-old female M54.51, vertebrogenic low back pain FINDINGS: There is a mild superior endplate deformity of L3 which has a chronic appearance. Mild signal without suspicious bone marrow. Fatty Modic type II endplate changes present throughout. Some edematous, Modic type I endplate changes present at both L4-L5 and L5-S1. Moderate to advanced multilevel disc/endplate degenerative change with desiccated, narrowed, and bulg ing discs. Corresponding ligamentum flavum thickening especially from L2 through L5 levels. Advanced hypertrophic facet arthropathy is also present throughout. Degenerative grade 1 retrolisthesis T11-T12. Grade 1 anterolisthesis L2-L3 and L3-L4. Remaining align ment is maintained. Conus medullaris is normal. The changes contribute to a severe focal spinal canal stenosis at L2-L3 with complete to near complet e effacement of the CSF signal at this level. Additional moderate to severe focal spinal canal stenosis at L4-L5. On the right, changes result in severe neuroforaminal stenosis at L4-L5 and T11-T12. Moderate at L5-S 1 and T12-L1. Mild to moderate at L3-L4. On the left, changes result in severe neuroforaminal stenoses at L1/L2 and L2-L3. Moderate at additio nal levels. No prevertebral or paravertebral soft tissue abnormality is seen. However, there is a cystic lesion of the body of the pancreas measuring 2.0 cm which should be reasse ssed at follow-up. A small serous cystadenoma or sequela of prior pancreatitis are some differential considerations. IMPRESSION: 1. Moderate to advanced multilevel disc/endplate degenerative change as well as hypertrophic facet ar thropathy and ligamentum flavum thickening. Some associated edematous Modic type I endplate change L4 -L5 and L5-S1. 2. Degenerative grade 1 spondylolisthesis T11-T12, L2-L3, and L3-L4. Old superior endplate deformity of L3. 3. Changes result in focal severe spinal canal stenosis at L2-L3 and moderate to severe at L4-L5. 4. Severe right neuroforaminal stenosis at T11-T12 and L4-L5. Severe on the left at L1-L2 and L2-L3. Moderate at multiple additional levels as outlined above. 5. A 2.0 cm cystic lesion of the pancreatic body could represent a serous cystadenoma or sequela of p rior pancreatitis. Recommend 6 month follow-up pancreas MRI to reassess and further characterize. Dictated by Dr. Kristian Weiss"
== END | disposition home or self-care (01) ==
LOC: RADMRIMAIN 09:44
PROVIDERS: ATTEND Physical Medicine & Rehabilitation
DX: S32.030D Wedge compression fracture of third lumbar vertebra, subsequent encounter for fracture with routine healing (principal); M41.26 Other idiopathic scoliosis, lumbar region; M43.16 Spondylolisthesis, lumbar region; M51.17 Intervertebral disc disorders with radiculopathy, lumbosacral region; M51.37 Other intervertebral disc degeneration, lumbosacral region; K86.2 Cyst of pancreas; M48.05 Spinal stenosis, thoracolumbar region; M47.27 Other spondylosis with radiculopathy, lumbosacral region
CPT/HCPCS: 72148